=== PATIENT | male | born 1950 | race Caucasian/White ===

== ENCOUNTER 2018-11-09 18:54 | Inpatient (IN) | payer OTHER ==
[2018-11-09 19:27] LABS: #Basophils 0.1 thou/uL (0.0-0.2); #Eosinphils 0.4 thou/uL (0.0-0.7); #Lymphocytes 1.2 thou/uL (1.20-3.40); #Monocytes 0.8 thou/uL (0.11-0.59); #Neutrophils 7.8 thou/uL (1.40-6.50); %Basophils 0.7 % (0.0-1.0); %Eosinophils 4.1 % (0.0-10.0); %Lymphocytes 11.5 % (21.0-51.0); %Monocytes 7.4 % (0.0-10.0); %Neutrophils 76.3 % (42.0-75.0); Hemoglobin 10.7 g/dL (14.0-18.0); Mean Corpuscular HGB CONC 31.2 g/dL (32.0-36.0); Mean Corpuscular Hemoglobin 30.5 pg (27.0-31.0); Mean Platelet Volume 8.6 fL (7.4-10.4); Platelet Count 182 thou/uL (130-400); RBC Distribution Width 12.9 % (11.5-14.5); Red Blood Cell (RBC) Count 3.52 mill/uL (4.70-6.10); White Blood Cell (WBC) Count 10.2 thou/uL (4.8-10.8)
--- NOTE | 2018-11-09 19:35 | RAD ---
CHEST ONE VIEW: History: Chest pain FINDINGS: Heart size is enlarged. Mild pulmonary venous congestion. Mild blunting of both lateral costophrenic sulci. No pneumothorax. IMPRESSION: 1. Cardiomegaly and mild pulmonary venous congestion. 2. Likely small bilateral pleural effusions. POS: [facility]
[2018-11-09 19:43] LABS: ALT (SGPT) 27 U/L (8-55); AST (SGOT) 21 U/L (5-34); Albumin 3.3 g/dL (3.4-4.8); Alkaline Phosphatase 156 U/L (40-150); Anion Gap 14 mmol/L (10-20); BUN (Urea Nitrogen) 29 mg/dL (8.4-25.7); Bilirubin, Total 0.4 mg/dL (0.2-1.2); CK (CPK) 34 U/L (30-200); Calc. Creatinine Clearance 0 mL/min (70-130); Calcium 10.1 mg/dL (7.8-10.44); Carbon Dioxide 15 mmol/L (23-31); Chloride 114 mmol/L (98-107); Estimated GFR-MDRD 16; Globulin 2.7 g/dL (2.4-3.5); Glucose 91 mg/dL (80-115); Potassium 4.8 mmol/L (3.5-5.1); Sodium 138 mmol/L (136-145)
[2018-11-09 20:05] LABS: CKMB 1.8 ng/mL (0-6.6)
[2018-11-09 23:01] LABS: Troponin I 0.062 ng/mL (< 0.028)
[2018-11-09] MEDS ORDERED: Bisacodyl 10 MG SUPP PR PRN (23:38)
[2018-11-09] MEDS ORDERED: hydrALAZINE 20 MG/ML VIAL SLOW IVP PRN (23:38)
[2018-11-09] MEDS ORDERED: Acetaminophen 325 MG TAB PO PRN (23:38)
[2018-11-09] MEDS ORDERED: HYDROcodone/Acetaminophen 5/325 mg Tablet PO PRN (23:38)
[2018-11-09] MEDS ORDERED: Furosemide 100 MG/10 ML VIAL SLOW IVP SCH (23:38)
[2018-11-09] MEDS ORDERED: Ondansetron PF 4 MG/2 ML Vial IVP PRN (23:38)
[2018-11-10] MEDS: cloNIDine 0.1 MG TAB PO PRN ×2 (00:16→04:47)
[2018-11-10 00:29] VITALS: BMI 36.8
--- NOTE | 2018-11-10 01:17 | HP ---
PRIMARY CARE PHYSICIAN: None. CHIEF COMPLAINT: Chest pain. HISTORY OF PRESENT ILLNESS: The patient is a 67-year-old male with past medical history of CKD, likely end-stage, not on dialysis; hypertension; hyperlipidemia ; and depression, who [facility]. The patient reports that his chest pain has been going on for the past 2 days. It is substernal. The patient reports that his chest pain is not resolved. The patient reports that he has severe kidney failure and that they have talked about him to be on dialysis. The patient reports that he follows up with a concession stand attendant, but he is not able to tell the name of the concession stand attendant. Per [facility], the patient has been getting his medications. The patient takes metoprolol at nighttime. Review of chart indicated the patient did not have any workup in the EMR. PAST MEDICAL HISTORY: As mentioned in the HPI. PAST PSYCHIATRIC HISTORY: Bipolar. PAST SURGICAL HISTORY: None. SOCIAL HISTORY: The patient is a former smoker. Denies alcohol or drugs. FAMILY HISTORY: The patient reports mother having coronary artery disease. CURRENT MEDICATIONS: 1. Amlodipine. 2. Aspirin. 3. Atorvastatin. 4. Losartan. 5. Metoprolol. 6. Calcitriol. 7. Sevelamer. 8. Vitamin B12. 9. Loratadine. 10. Lamotrigine. 11. Sensipar. 12. Levemir. 13. Terazosin. 14. Lasix 120 mg b.i.d. ALLERGIES: NO KNOWN ALLERGIES TO DRUG. REVIEW OF SYSTEMS: A 10-point review of systems is negative, other than mentioned in the HPI. PHYSICAL EXAMINATION: VITAL SIGNS: Blood pressure 247/127, heart rate 70, respiratory rate 20, and O2 saturation 99% on room air. HEENT: Head, atraumatic. Ears, nose, and throat; no exudate or bleeding noted. NECK: No lymphadenopathy noted. CARDIOVASCULAR: Regular rate and rhythm. No murmurs, rubs, or gallops noted. RESPIRATORY: The patient noted to have rales. No wheezes noted. ABDOMEN: Soft and nontender. Bowel sounds are positive. EXTREMITIES: Bilateral lower extremity edema, 2+. NEUROLOGIC: The patient is alert. SKIN: No rashes noted. LABORATORY DATA: Sodium 138, potassium 4.8, chloride 114, carbon dioxide 15, BUN 29, creatinine 3.76, and glucose 91. Alkaline phosphatase 156. Troponin 0.062. White blood cell count 10.2, hemoglobin 10.7, hematocrit 34.5, and platelets 182. DIAGNOSTIC DATA: Chest x-ray, concerning for cardiomegaly with mild pulmonary vascular congestion, likely small bilateral pleural fluids. The patient's EKG reviewed, showed first-degree block and complete right bundle-branch block. ASSESSMENT: 1. Acute congestive heart failure. 2. Chronic kidney disease, likely stage 4 or 5. 3. Chest pain. 4. Hypertension, uncontrolled. 5. Hyperlipidemia. PLAN: The patient's chest pain resolved. We will admit for ACS rule out. Initial troponin does not seem to be positive. Cardiology consult placed. Echocardiogram ordered. We will trend troponin overnight. The patient will be on tele. It appears that the patient may have acute CHF, type unknown at this point. The patient takes Lasix 120 mg b.i.d., but reports a very little urine output. We will give Lasix 80 mg b.i.d. Also, we will place the patient on fluid restriction. Cardiology consult placed. BNP pending. Chronic kidney disease, stage 5 or stage 4. The patient's creatinine baseline unknown at this point. The patient does not seem to be responding very well to home Lasix 120 mg b.i.d. We will give Lasix 80 mg b.i.d. Nephrology consult placed for the morning. If the patient continues to have poor urine output and fluid overload, he may need dialysis. Hypertensive urgency. The patient's blood pressure in 240s/127. The patient was given labetalol in the ER. We will add hydralazine and clonidine p.r.n. Restart home medication as soon as they are verified. Will avoid labetalol as HR 60-70 Hyperlipidemia. Continue home medication. The patient is a full code. Medical power of document review attorney, the patient would like his step mom to be medical power of document review attorney. The patient does not have any children. DVT prophylaxis addressed. Job ID: [id number] [facility]
[2018-11-10 01:43] LABS: Troponin I 0.074 ng/mL (< 0.028)
[2018-11-10] MEDS: Nitroglycerin 2% Ointment 1 INCH/1 GM Packet TOP SCH ×3 (04:48→21:46)
[2018-11-10 05:44] LABS: Band 5 % (5-11); Hemoglobin 10.9 g/dL (14.0-18.0); Lymphocytes 5 % (21-51); MDiff Complete? YES; Mean Corpuscular HGB CONC 31.7 g/dL (32.0-36.0); Mean Corpuscular Hemoglobin 30.7 pg (27.0-31.0); Mean Corpuscular Volume 96.7 fL (78.0-98.0); Mean Platelet Volume 9.2 fL (7.4-10.4); Monocytes 6 % (0-10); Myelocyte 1 % (0-0); Neutrophil 83 % (42-75); Platelet Count 200 thou/uL (130-400); Platelet Morphology Comment Appears Adequate; RBC Distribution Width 12.8 % (11.5-14.5); Red Blood Cell (RBC) Count 3.56 mill/uL (4.70-6.10); White Blood Cell (WBC) Count 12.3 thou/uL (4.8-10.8)
[2018-11-10 06:00] LABS: Anion Gap 12 mmol/L (10-20); BUN (Urea Nitrogen) 31 mg/dL (8.4-25.7); Calc. Creatinine Clearance 29 mL/min (70-130); Calcium 10.6 mg/dL (7.8-10.44); Carbon Dioxide 22 mmol/L (23-31); Cardiac Risk 5.6 (Less than 4.5); Chloride 110 mmol/L (98-107); Cholesterol 151 mg/dl (< 200 Desired); Estimated GFR-MDRD 16; Glucose 103 mg/dL (80-115); HDL Cholesterol 27 mg/dL (>60 Neg Risk); LDL Cholesterol, Calculated 105 mg/dL; Magnesium 2.3 mg/dL (1.6-2.6); Potassium 4.3 mmol/L (3.5-5.1); Sodium 140 mmol/L (136-145); Triglycerides 97 mg/dL (Less than 150)
[2018-11-10] MEDS: Furosemide 100 MG/10 ML VIAL SLOW IVP SCH ×2 (06:36→13:53)
[2018-11-10] MEDS ORDERED: Non-Formulary Item 1 EACH (Aspirin 81 MG) PO SCH (09:00)
[2018-11-10] MEDS ORDERED: LAMOTRIGINE 200 MG PO SCH (09:00)
[2018-11-10] MEDS ORDERED: Losartan 25 MG TAB PO SCH (09:00)
[2018-11-10] MEDS ORDERED: Amlodipine 10 MG TAB PO SCH (09:00)
[2018-11-10] MEDS: Heparin 5,000 UNITS/ML VIAL SC SCH ×3 (09:31→21:45)
[2018-11-10] MEDS: Sevelamer Carbonate 800 MG TAB PO SCH ×3 (09:31→21:46)
[2018-11-10] MEDS: lamoTRIgine 100 MG TAB PO SCH (09:31)
[2018-11-10] MEDS: Atorvastatin Calcium 40 MG TAB PO SCH (09:32)
[2018-11-10] MEDS: Metoprolol Tartrate 25 MG TAB PO SCH ×2 (09:32→21:46)
[2018-11-10] MEDS: Calcitriol 0.25 MCG CAP PO SCH (09:32)
[2018-11-10] MEDS: Aspirin Chewable 81 MG TAB PO SCH (09:32)
[2018-11-10] MEDS: Cinacalcet HCl 30 MG TAB PO SCH (09:32)
[2018-11-10] MEDS: Aspirin 81 mg Enteric Coated Tablet PO SCH (09:33)
--- NOTE | 2018-11-10 10:14 | PDOC.PN ---
- Subjective Encounter Start Date: 11/10/18 Encounter Start Time: 07:40 -: old records requested/rev Patient seen and examined. No new complaints. No overnight events - Objective Resuscitation Status - Order Detail: 11/09/18 23:15 Resuscitation Status Routine Resuscitation Status: FULL: Full Resuscitation MAR Reviewed: Yes Vital Signs & Weight: Vital Signs (12 hours) Temp Pulse Resp BP BP BP Pulse Ox 11/10/18 08:00 97.6 F 60 24 H 186/81 H 95 11/10/18 06:30 66 162/82 H 11/10/18 04:47 199/91 H 11/10/18 04:17 99.0 F 66 24 H 199/91 H 94 L 11/10/18 02:45 81 184/92 H 11/10/18 01:46 68 200/94 H 11/10/18 01:06 199/100 H 11/10/18 00:16 203/99 H 11/10/18 00:11 97 11/09/18 23:34 98.0 F 73 19 203/99 H 95 Weight Weight 242 lb 1.6 oz I&O: 11/09/18 11/10/18 11/11/18 06:59 06:59 06:59 Intake Total 840 Output Total 2150 Balance -1310 Result Diagrams: 11/10/18 04:23 11/10/18 04:23 Radiology Reviewed by me: Yes EKG Reviewed by me: Yes Phys Exam - Physical Examination Constitutional: NAD HEENT: PERRLA, moist MMs, sclera anicteric Neck: no JVD, supple Respiratory: no wheezing, no rales, no rhonchi Cardiovascular: RRR, no significant murmur, no rub Gastrointestinal: soft, non-tender, no distention, positive bowel sounds obesity Musculoskeletal: edema present Neurological: non-focal, normal sensation Lymphatic: no nodes Psychiatric: normal affect, A&O x 3 Skin: no rash, normal turgor Dx/Plan (1) Acute on chronic diastolic ACC/AHA stage C congestive heart failure Code(s): I50.33 - ACUTE ON CHRONIC DIASTOLIC (CONGESTIVE) HEART FAILURE Status : Acute (2) Chest pain Code(s): R07.9 - CHEST PAIN, UNSPECIFIED Status: Acute (3) Elevated troponin Code(s): R74.8 - ABNORMAL LEVELS OF OTHER SERUM ENZYMES Status: Acute (4) Hypertensive urgency Code(s): I16.0 - HYPERTENSIVE URGENCY Status: Acute (5) Anemia of renal disease Code(s): N18.9 - CHRONIC KIDNEY DISEASE, UNSPECIFIED; D63.1 - ANEMIA IN CHRONIC KIDNEY DISEASE Status: Chronic (6) Anxiety and depression Code(s): F41.9 - ANXIETY DISORDER, UNSPECIFIED; F32.9 - MAJOR DEPRESSIVE DISORDER, SINGLE EPISODE, UNSPECIFIED Status: Chronic (7) CKD (chronic kidney disease) stage 4, GFR 15-29 ml/min Code(s): N18.4 - CHRONIC KIDNEY DISEASE, STAGE 4 (SEVERE) Status: Chronic (8) Diabetes type 2, controlled Code(s): E11.9 - TYPE 2 DIABETES MELLITUS WITHOUT COMPLICATIONS Status: Chronic (9) Dyslipidemia Code(s): E78.5 - HYPERLIPIDEMIA, UNSPECIFIED Status: Chronic (10) Hypertension Code(s): I10 - ESSENTIAL (PRIMARY) HYPERTENSION Status: Chronic (11) Obesity (BMI 30-39.9) Code(s): E66.9 - OBESITY, UNSPECIFIED Status: Chronic (12) Secondary hyperparathyroidism (of renal origin) Code(s): N25.81 - SECONDARY HYPERPARATHYROIDISM OF RENAL ORIGIN Status: Chronic - Plan cont current plan of care * medication reviewed as below * symptomatic treatment * cardiology and nephrology consulted * home medication reconciled. Review of Systems - Review of Systems ENT: negative: Ear Pain, Ear Discharge, Nose Pain, Nose Discharge, Nose Congestion, Mouth Pain, Mouth Swelling, Throat Pain, Throat Swelling, Other Respiratory: negative: Cough, Dry, Shortness of Breath, Hemoptysis, SOB with Excertion, Pleuritic Pain, Sputum, Wheezing Cardiovascular: negative: chest pain, palpitations, orthopnea, paroxysmal nocturnal dyspnea, edema, light headedness, other Gastrointestinal: negative: Nausea, Vomiting, Abdominal Pain, Diarrhea, Constipation, Melena, Hematochezia, Other Genitourinary: negative: Dysuria, Frequency, Incontinence, Hematuria, Retention , Other Musculoskeletal: negative: Neck Pain, Shoulder Pain, Arm Pain, Back Pain, Hand Pain, Leg Pain, Foot Pain, Other Skin: negative: Rash, Lesions, Cornelius, Bruising, Other - Medications/Allergies Allergies/Adverse Reactions: Allergies Allergy/AdvReac Type Severity Reaction Status Date / Time No Known Drug Allergies Allergy Unverified 11/09/18 23:41 Medications: Current Medications Acetaminophen (Tylenol) 650 mg PO Q4H PRN PRN Reason: Headache/Fever/Mild Pain (1-3) Hydrocodone Bitart/Acetaminophen ([place] 5/325) 1 tab PO Q4H PRN PRN Reason: Moderate Pain (4-6) Amlodipine Besylate (Norvasc) 10 mg PO DAILY [facility] Last Admin: 11/10/18 09:32 Dose: 10 mg Aspirin (Ecotrin) 81 mg PO DAILY [facility] Last Admin: 11/10/18 09:33 Dose: Not Given Aspirin (Aspirin Chewable) 81 mg PO DAILY [facility] Last Admin: 11/10/18 09:32 Dose: 81 mg Atorvastatin Calcium (Lipitor) 40 mg PO DAILY [facility] Last Admin: 11/10/18 09:32 Dose: 40 mg Bisacodyl (Dulcolax) 10 mg [place] DAILYPRN PRN PRN Reason: Constipation Calcitriol (Rocaltrol) 0.25 mcg PO DAILY [facility] Last Admin: 11/10/18 09:32 Dose: 0.25 mcg Cinacalcet (Sensipar) 30 mg PO DAILY [facility] Last Admin: 11/10/18 09:32 Dose: 30 mg Citalopram Hydrobromide (Celexa) 20 mg PO HS [facility] Clonidine (Catapres) 0.1 mg PO Q4H PRN PRN Reason: SBP Greater Than 170 Last Admin: 11/10/18 04:47 Dose: 0.1 mg Furosemide (Lasix) 80 mg SLOW IVP 0600,1400 [facility] Last Admin: 11/10/18 06:36 Dose: 80 mg Heparin Sodium (Porcine) (Heparin) 5,000 units SC TID [facility] Last Admin: 11/10/18 09:31 Dose: 5,000 units Hydralazine HCl (Apresoline) 10 mg SLOW IVP Q4H PRN PRN Reason: SBP Greater Than 170 Last Admin: 11/10/18 01:46 Dose: 10 mg Lamotrigine (Lamictal) 200 mg PO DAILY [facility] Last Admin: 11/10/18 09:31 Dose: 200 mg Losartan Potassium (Cozaar) 50 mg PO DAILY [facility] Last Admin: 11/10/18 09:32 Dose: 50 mg Metoprolol Tartrate (Lopressor) 25 mg PO BID [facility] Last Admin: 11/10/18 09:32 Dose: 25 mg Nitroglycerin (Nitro-Bid 2% Ointment) 0.5 inch TOP Q8HR [facility] Last Admin: 11/10/18 04:48 Dose: Not Given Ondansetron HCl (Zofran) 4 mg IVP Q6H PRN PRN Reason: Nausea/Vomiting Sevelamer Carbonate (Renvela) 800 mg PO TID [facility] Last Admin: 11/10/18 09:31 Dose: 800 mg Sodium Chloride (Flush - Normal Saline) 10 ml IVF Q12HR [facility] Last Admin: 11/10/18 09:31 Dose: 10 ml Sodium Chloride (Flush - Normal Saline) 10 ml IVF PRN PRN PRN Reason: Saline Flush Terazosin HCl (Hytrin) 20 mg PO HS [facility]
[2018-11-10 12:00] LABS: Bilirubin Negative (Negative); Blood, Urine Trace (Negative); Clarity CLEAR (Clear); Glucose, Urine (Dipstick) Negative (Negative); Leukocyte Negative (Negative); Nitrite Negative (Negative); Protein, Urine (Dipstick) 100 mg/dL (Neg-Trace); Specific Gravity, Urine 1.008 (1.002-1.036); Urobilinogen 0.2 mg/dL (0.2-1.0); pH, Urine 6.5 (5.0-9.0)
[2018-11-10 12:06] LABS: Bacteria/HPF None Seen HPF (None Seen); Hyaline Casts/LPF 0-3 HYALINE CAST LPF (0-3 Hyaline); RBC/HPF 0-3 HPF (0-3); Squamous Epithelial None Seen HPF (0-3); WBC/HPF None Seen HPF (0-3)
[2018-11-10 12:38] LABS: Creatinine, Urine Less than 20.00 mg/dL (63-166); Protein, Urine Random Quant 84 mg/dL (1-14)
--- NOTE | 2018-11-10 13:02 | CON ---
DATE OF CONSULTATION: 11/10/2018 REASON FOR CONSULTATION: Chronic kidney disease stage 4 with possible ESTELLA. CHIEF COMPLAINT: Chest pain and shortness of breath. HISTORY OF PRESENT ILLNESS: A 67-year-old male with past medical history significant for chronic kidney disease, stage 4, diagnosed since 1999, hypertension, hyperlipidemia, who was admitted to the hospital by the hospitalist service for evaluation and treatment of chest pain and shortness of breath. Nephrology consult was requested for management of chronic kidney disease with possible reversible component. The patient reported that he was told he had kidney disease in the year 1999 and has been followed up intermittently at [facility]. During the patient's last hospitalization at [facility] in Aug 2018, the patient was told that the kidney function has deteriorated further and dialysis was considered and they also planned on establishing access on him, but that has not happened yet. The patient reported that he was swollen and was treated with diuretics with improvement in swelling and shortness of breath and was subsequently discharged. Since then, he reported that the swelling progressively has gotten worse, culminating in acute onset of chest pain on the day of presentation associated with exertion on dyspnea. The patient continues to complain of difficulty breathing and shortness of breath. The chest pain has resolved. The patient also was noted to have uncontrolled high blood pressure with BP of 203/99 on presentation. Baseline creatinine is unknown at this time. PAST MEDICAL HISTORY: 1. Chronic kidney disease, stage 4. 2. Hypertension. 3. Hyperlipidemia. 4. Depression and anxiety. 5. Hypothyroidism. 6. Bipolar. Levemir is listed in patient home medications but he denied DM history PAST SURGICAL HISTORY: None. SOCIAL HISTORY: The patient is currently [facility] the [facility]. He admitted to smoking two packs per day and has not smoked since been in penitentiary. He denied alcohol or recreational drug use. FAMILY HISTORY: Significant for coronary artery disease in both parents. ALLERGIES: NO KNOWN DRUG ALLERGIES REPORTED. HOME MEDICATIONS: 1. Amlodipine. 2. Aspirin. 3. Atorvastatin. 4. Losartan. 5. Metoprolol. 6. Calcitriol. 7. Sevelamer. 8. Vitamin B12. 9. Loratadine. 10. Lamotrigine. 11. Sensipar. 12. Levemir. 13. Terazosin. 14. Lasix. Of note, the patient denied history of diabetes. REVIEW OF SYSTEMS: 12-point review of system was performed, and it was negative other than the pertinent positives and negatives included in the history of presenting illness. PHYSICAL EXAMINATION: VITAL SIGNS: Current vitals at 8:00 a.m. November 10, 2018; BP 186/81, pulse 60 , respiratory rate 24, SpO2 of 94 on room air, temperature 97.6. Since admission, systolic blood pressure has ranged from 155 to 203. GENERAL: Obese, elderly male, in no obvious distress. Afebrile, anicteric, acyanotic. HEENT: Normocephalic and atraumatic. Pupils are equal and reacting to light. Oral mucosa is moist. NECK: No obvious JVD or lymphadenopathy appreciated. CARDIOVASCULAR: Regular rhythm and rate with normal heart sounds one and two. No murmur was appreciated. RESPIRATORY: Fair air entry bilateral with decreased air entry both bases. Few crackles bibasilarly appreciated. GI: Abdomen is obese, soft, and nontender with normal bowel sounds. EXTREMITIES: Grossly normal looking other than bilateral leg edema 2+. No erythema appreciated. SKIN: No obvious rash was appreciated, though the skin seems very dry. NEUROLOGIC: Conscious and alert, oriented x3 with appropriate mental status. Cranial nerves 2 through 12 are intact. The patient moves all extremities. LABORATORY DATA: BMP today showed sodium 140, potassium 4.3, chloride 110, CO2 of 22, BUN 31, creatinine 3.85, glucose 103, calcium 10.6, magnesium 2.3. Creat on admission was 3.76 Estimated GFR is 16. BNP is 2628. Troponin is 0.074. CBC showed WBC count of 12.3, hemoglobin of 10.9, MCV of 96.7, platelet of 200. DIAGNOSTIC DATA: EKG done on presentation showed first-degree AV block with complete right bundle-branch block. No obvious ischemic changes noted. Chest x-ray obtained on presentation showed cardiomegaly and mild bilateral pulmonary congestion with likely small bilateral pleural effusion. ASSESSMENT AND PLAN/RECOMMENDATION: 1. Chronic kidney disease, stage 4 with possible ESTELLA. The patient reported a diagnosis of chronic kidney disease since 1999 that is 19 years ago. He was also told that his kidney function had worsened during last admission at [facility] and dialysis was considered. Baseline creatinine and renal function are unknown at this time. The patient has been making adequate urine with diuretic. Acid-base and electrolytes are acceptable at this time. The patient is also on Sensipar and sevelamer. We will get medical records from [facility] to assess the patient's baseline renal function. There is no need for dialytic treatment at this time. However, that could change should cardiology decide on proceeding with angiogram on him. 2. Uncontrolled hypertension: This most likely is related to the chronic kidney disease and volume overload. BP remains inadequately controlled. Improvement of volume status will improve BP control. We recommend switching amlodipine with nifedipine so that medication could be optimized to get adequate BP control. We will also increase losartan dose 3. Volume status: The patient is clearly volume overloaded. He is diuresing well with current diuretic regimen. He was negative 1300 in the last 24 hours. We will continue current diuretic regimen, but we will add metolazone if diuresis becomes inadequate. 4. Acid-base balance: The patient was noted to have a CO2 of 15 with a chloride of 115. With diuretics, CO2 is up to 22 this morning. We will monitor acid-base balance. The patient is not on alkali treatment. This should be considered when volume status has improved. 5. Electrolytes: Potassium is within normal limits. We do not have phosphorus at this time, but the patient is on binder. 6. Bone and mineral disease: Total calcium is mildly elevated at 10.6. This most likely due to diuretic therapy. The patient is also on calcitriol. We will monitor closely. Many thanks for involving us in the care of this patient. I will follow along with you. Job ID: [id number] MTDD
--- NOTE | 2018-11-10 20:45 | CON ---
DATE OF CONSULTATION: HISTORY OF PRESENT ILLNESS: Sebastian Coffman is a 67-year-old white male, inmate at the [place] [facility]. He has been evaluated at [facility] in the past. He has been told since 1999 that he had kidney disease. He was last evaluated at [facility] in August. He had some cardiac evaluation, although, he is not certain exactly what was done. However, he was told that his heart was "all right." He now is admitted with approximately 2 hours of continuous chest pressure. He was short of breath with this. He denies any pleuritic component to the pain. If he would lie supine in bed, the pain would seem to be worse, and his breathing would also worsen. He states by the time he arrived in the emergency room, his pain was resolving. PAST MEDICAL HISTORY: Hypertension and hypercholesterolemia. No history of diabetes. MEDICATIONS: 1. Amlodipine 10 mg daily. 2. Aspirin 81 daily. 3. Lipitor 40 mg daily. 4. Calcitriol 0.25 mcg daily. 5. Sensipar 30 mg daily. 6. Celexa 20 mg at bedtime. 7. Vitamin B12 of 1000 mcg daily. 8. Furosemide 120 mg b.i.d. 9. Lamictal 200 mg daily. 10. Claritin 10 mg daily. 11. Losartan 50 mg daily. 12. Terazosin 20 mg at bedtime. 13. Sevelamer 800 mg t.i.d. ALLERGIES: NONE. SOCIAL HISTORY: He smoked 2 packs per day, but states he stopped 20 years ago. Does not drink. FAMILY HISTORY: Both mother and father had myocardial infarctions. REVIEW OF SYSTEMS: A 12-point review of systems is otherwise unremarkable. PHYSICAL EXAMINATION: VITAL SIGNS: Blood pressure 163/77 and pulse of 54. HEENT: PERRL. NECK: Supple. CHEST: Clear. CARDIAC: S1 and S2 normal without any S3, S4, or murmurs. ABDOMEN: Mildly obese. Normal bowel sounds. No tenderness. EXTREMITIES: Revealed 1+ pretibial edema. NEUROLOGIC: Grossly intact. SKIN: Warm and dry. LABORATORY DATA: EKG revealed normal sinus rhythm with first degree AV block and right bundle-branch block. Chest x-ray revealed cardiomegaly with mild pleural effusions and pulmonary venous congestion. Hemoglobin 10.9, hematocrit 34.4, white count 12,300, platelets 200,000. Sodium 140, potassium 4.3, chloride 110, carbon dioxide 22, BUN 31, creatinine 3.85. BNP 2688.7. Troponin I 0.074. Cholesterol 151, triglycerides 97, HDL 27, and LDL 105. TSH is normal. IMPRESSION: 1. Probable diastolic heart failure secondary to volume overload and poorly-controlled hypertension. 2. Demand ischemia. 3. Chronic kidney disease, stage 4. 4. Hypertension. 5. Hypercholesterolemia. 6. Former smoker. 7. Positive family history. PLAN: Echocardiogram will be performed to assess left ventricular function. He will undergo Cardiolite testing. Certainly, if he would undergo cardiac catheterization, he probably would end up on dialysis. Job ID: [id number] [facility]
[2018-11-10] MEDS ORDERED: TERAZOSIN HCL PO SCH (21:00)
[2018-11-10] MEDS: Losartan 25 MG TAB PO SCH (21:45)
[2018-11-10] MEDS: Citalopram 20 MG TAB PO SCH (21:45)
[2018-11-10] MEDS: Terazosin HCl 5 MG CAP PO SCH (21:46)
[2018-11-11] MEDS: Nitroglycerin 2% Ointment 1 INCH/1 GM Packet TOP SCH ×3 (05:57→20:04)
[2018-11-11] MEDS: Furosemide 100 MG/10 ML VIAL SLOW IVP SCH ×2 (06:06→15:22)
[2018-11-11 06:32] LABS: Albumin 3.2 g/dL (3.4-4.8); Anion Gap 11 mmol/L (10-20); BUN (Urea Nitrogen) 42 mg/dL (8.4-25.7); BUN/Creatinine Ratio 9.79; Calc. Creatinine Clearance 25 mL/min (70-130); Carbon Dioxide 21 mmol/L (23-31); Chloride 111 mmol/L (98-107); Estimated GFR-MDRD 14; Glucose 104 mg/dL (80-115); Phosphorus 4.4 mg/dL (2.3-4.7); Potassium 4.3 mmol/L (3.5-5.1); Sodium 139 mmol/L (136-145)
[2018-11-11 06:36] LABS: Troponin I 0.056 ng/mL (< 0.028)
[2018-11-11] MEDS ORDERED: Regadenoson 0.4 MG/5 ML SYRINGE ONE (10:27)
--- NOTE | 2018-11-11 11:48 | PDOC.PN ---
- Subjective Encounter Start Date: 11/11/18 Encounter Start Time: 07:40 Patient seen and examined. No new complaints. No overnight events - Objective Resuscitation Status - Order Detail: 11/09/18 23:15 Resuscitation Status Routine Resuscitation Status: FULL: Full Resuscitation MAR Reviewed: Yes Vital Signs & Weight: Vital Signs (12 hours) Temp Pulse Resp BP Pulse Ox 11/11/18 04:21 97.8 F 53 L 14 110/65 94 L Weight Weight 234 lb I&O: 11/10/18 11/11/18 11/12/18 06:59 06:59 06:59 Intake Total 840 550 Output Total 2150 2175 Balance -1310 -1625 Result Diagrams: 11/10/18 04:23 11/11/18 05:52 Radiology Reviewed by me: Yes EKG Reviewed by me: Yes Phys Exam - Physical Examination Constitutional: NAD HEENT: PERRLA, moist MMs, sclera anicteric Neck: no JVD, supple Respiratory: no wheezing, no rales, no rhonchi Cardiovascular: RRR, no significant murmur, no rub Gastrointestinal: soft, non-tender, no distention, positive bowel sounds Musculoskeletal: pulses present, edema present Neurological: non-focal, normal sensation Lymphatic: no nodes Psychiatric: normal affect, A&O x 3 Skin: no rash, normal turgor Dx/Plan (1) Acute on chronic diastolic ACC/AHA stage C congestive heart failure Code(s): I50.33 - ACUTE ON CHRONIC DIASTOLIC (CONGESTIVE) HEART FAILURE Status : Acute (2) Chest pain Code(s): R07.9 - CHEST PAIN, UNSPECIFIED Status: Acute (3) Elevated troponin Code(s): R74.8 - ABNORMAL LEVELS OF OTHER SERUM ENZYMES Status: Acute (4) Hypertensive urgency Code(s): I16.0 - HYPERTENSIVE URGENCY Status: Acute (5) Anemia of renal disease Code(s): N18.9 - CHRONIC KIDNEY DISEASE, UNSPECIFIED; D63.1 - ANEMIA IN CHRONIC KIDNEY DISEASE Status: Chronic (6) Anxiety and depression Code(s): F41.9 - ANXIETY DISORDER, UNSPECIFIED; F32.9 - MAJOR DEPRESSIVE DISORDER, SINGLE EPISODE, UNSPECIFIED Status: Chronic (7) CKD (chronic kidney disease) stage 4, GFR 15-29 ml/min Code(s): N18.4 - CHRONIC KIDNEY DISEASE, STAGE 4 (SEVERE) Status: Chronic (8) Diabetes type 2, controlled Code(s): E11.9 - TYPE 2 DIABETES MELLITUS WITHOUT COMPLICATIONS Status: Chronic (9) Dyslipidemia Code(s): E78.5 - HYPERLIPIDEMIA, UNSPECIFIED Status: Chronic (10) Hypertension Code(s): I10 - ESSENTIAL (PRIMARY) HYPERTENSION Status: Chronic (11) Obesity (BMI 30-39.9) Code(s): E66.9 - OBESITY, UNSPECIFIED Status: Chronic (12) Secondary hyperparathyroidism (of renal origin) Code(s): N25.81 - SECONDARY HYPERPARATHYROIDISM OF RENAL ORIGIN Status: Chronic - Plan cont current plan of care * today stress test * continue lasix * continue procardia xl * cardiology and nephrology recommendation noted * medication reviewed as below * symptomatic treatment. Review of Systems - Review of Systems ENT: negative: Ear Pain, Ear Discharge, Nose Pain, Nose Discharge, Nose Congestion, Mouth Pain, Mouth Swelling, Throat Pain, Throat Swelling, Other Respiratory: negative: Cough, Dry, Shortness of Breath, Hemoptysis, SOB with Excertion, Pleuritic Pain, Sputum, Wheezing Cardiovascular: negative: chest pain, palpitations, orthopnea, paroxysmal nocturnal dyspnea, edema, light headedness, other Gastrointestinal: negative: Nausea, Vomiting, Abdominal Pain, Diarrhea, Constipation, Melena, Hematochezia, Other Genitourinary: negative: Dysuria, Frequency, Incontinence, Hematuria, Retention , Other Musculoskeletal: negative: Neck Pain, Shoulder Pain, Arm Pain, Back Pain, Hand Pain, Leg Pain, Foot Pain, Other - Medications/Allergies Allergies/Adverse Reactions: Allergies Allergy/AdvReac Type Severity Reaction Status Date / Time No Known Drug Allergies Allergy Verified 11/11/18 05:56 Medications: Current Medications Acetaminophen (Tylenol) 650 mg PO Q4H PRN PRN Reason: Headache/Fever/Mild Pain (1-3) Last Admin: 11/10/18 21:47 Dose: 650 mg Hydrocodone Bitart/Acetaminophen ([place] 5/325) 1 tab PO Q4H PRN PRN Reason: Moderate Pain (4-6) Aspirin (Ecotrin) 81 mg PO DAILY [facility] Last Admin: 11/10/18 09:33 Dose: Not Given Aspirin (Aspirin Chewable) 81 mg PO DAILY [facility] Last Admin: 11/10/18 09:32 Dose: 81 mg Atorvastatin Calcium (Lipitor) 40 mg PO DAILY [facility] Last Admin: 11/10/18 09:32 Dose: 40 mg Bisacodyl (Dulcolax) 10 mg MS DAILYPRN PRN PRN Reason: Constipation Calcitriol (Rocaltrol) 0.25 mcg PO DAILY [facility] Last Admin: 11/10/18 09:32 Dose: 0.25 mcg Cinacalcet (Sensipar) 30 mg PO DAILY [facility] Last Admin: 11/10/18 09:32 Dose: 30 mg Citalopram Hydrobromide (Celexa) 20 mg PO HS [facility] Last Admin: 11/10/18 21:45 Dose: 20 mg Clonidine (Catapres) 0.1 mg PO Q4H PRN PRN Reason: SBP Greater Than 170 Last Admin: 11/10/18 04:47 Dose: 0.1 mg Furosemide (Lasix) 80 mg SLOW IVP 0600,1400 [facility] Last Admin: 11/11/18 06:06 Dose: 80 mg Heparin Sodium (Porcine) (Heparin) 5,000 units SC TID [facility] Last Admin: 11/10/18 21:45 Dose: 5,000 units Hydralazine HCl (Apresoline) 10 mg SLOW IVP Q4H PRN PRN Reason: SBP Greater Than 170 Last Admin: 11/10/18 01:46 Dose: 10 mg Lamotrigine (Lamictal) 200 mg PO DAILY [facility] Last Admin: 11/10/18 09:31 Dose: 200 mg Losartan Potassium (Cozaar) 50 mg PO BID [facility] Last Admin: 11/10/18 21:45 Dose: 50 mg Metoprolol Tartrate (Lopressor) 25 mg PO BID [facility] Last Admin: 11/10/18 21:46 Dose: 25 mg Nifedipine (Procardia Xl) 30 mg PO DAILY [facility] Nitroglycerin (Nitro-Bid 2% Ointment) 0.5 inch TOP Q8HR [facility] Last Admin: 11/11/18 05:57 Dose: Not Given Ondansetron HCl (Zofran) 4 mg IVP Q6H PRN PRN Reason: Nausea/Vomiting Sevelamer Carbonate (Renvela) 800 mg PO TID [facility] Last Admin: 11/10/18 21:46 Dose: 800 mg Sodium Chloride (Flush - Normal Saline) 10 ml IVF Q12HR [facility] Last Admin: 11/10/18 21:46 Dose: 10 ml Sodium Chloride (Flush - Normal Saline) 10 ml IVF PRN PRN PRN Reason: Saline Flush Terazosin HCl (Hytrin) 20 mg PO HS [facility] Last Admin: 11/10/18 21:46 Dose: 20 mg
[2018-11-11] MEDS: Heparin 5,000 UNITS/ML VIAL SC SCH ×3 (12:04→20:02)
--- NOTE | 2018-11-11 12:04 | NM ---
RADIONUCLIDE STRESS AND REST MYOCARDIAL PERFUSION SCAN WITH CT ATTENUATION CORRECTION AND SPECT IMAGI NG: LEFT VENTRICULAR WALL MOTION EVALUATION AND EJECTION FRACTION: HISTORY: Chest pain. FINDINGS: Heterogeneous uptake of radiotracer throughout the left ventricular myocardium. On the stress images , there is a moderate-sized area of mildly to moderately diminished radiotracer uptake involving the inferolateral wall, where minimal loss of uptake is apparent on the rest images. Mild to moderate re versibility. No other areas of perfusion defect. QGS analysis of gated SPECT images shows no focal wall motion abnormalities. Left ventricular ejecti on fraction is calculated at 61%. IMPRESSION: Probably abnormal myocardial perfusion scan, showing an area of mild to moderate reversibility at the lateral wall. Clinical correlation regarding other signs and symptoms of circumflex ischemia is req uired. POS: KIRSTY
[2018-11-11] MEDS: Aspirin 81 mg Enteric Coated Tablet PO SCH (12:06)
[2018-11-11] MEDS: Losartan 25 MG TAB PO SCH ×2 (12:06→20:03)
[2018-11-11] MEDS: Metoprolol Tartrate 25 MG TAB PO SCH ×2 (12:07→20:02)
[2018-11-11] MEDS: Aspirin Chewable 81 MG TAB PO SCH (12:07)
[2018-11-11] MEDS: Atorvastatin Calcium 40 MG TAB PO SCH (12:07)
[2018-11-11] MEDS: Sevelamer Carbonate 800 MG TAB PO SCH ×3 (12:07→20:03)
[2018-11-11] MEDS: NIFEdipine XL 30 MG TAB PO SCH (12:07)
[2018-11-11] MEDS: lamoTRIgine 100 MG TAB PO SCH (12:08)
[2018-11-11] MEDS: Cinacalcet HCl 30 MG TAB PO SCH (12:08)
[2018-11-11] MEDS: Calcitriol 0.25 MCG CAP PO SCH (12:08)
--- NOTE | 2018-11-11 14:01 | PRG ---
DATE OF SERVICE: 11/11/2018 SUBJECTIVE: A 67-year-old long term inmate with CKD, stage 4/5; hypertension; and chronic CHF, who was admitted due to acute onset of chest pain as well as shortness of breath and was found to have wjwvh-ee-zzdvuid congestive heart failure. Nephrology consult was requested due to CKD to rule out possible reversible component. The patient reports feeling better. Shortness of breath and leg swelling have subsided. Review of medical record from [facility] showed that the patient had creatinine of 4.29 on September 23, 2018, as well as creatinine of 4.12 on October 28, 2018. Also, PTH intact was noted to be 1107 on September 23, 2018, and 1118.9 on October 28, 2018. OBJECTIVE: VITAL SIGNS: BP 130/67, pulse 53, temperature 97.8, SpO2 of 94 on room air, respiratory rate 14. GENERAL: Elderly male, in no obvious distress. Afebrile, anicteric, acyanotic. HEENT: Normocephalic and atraumatic. Pupils are equal and reacting to light. NECK: No JVD appreciated. RESPIRATORY: Good air entry bilaterally with few bibasilar crackles, especially posteriorly. No use of accessory muscles. CARDIOVASCULAR: Regular rhythm and rate with normal heart sounds 1 and 2. GI: Abdomen is obese, soft, nontender, and nondistended with normal bowel sounds. EXTREMITIES: Trace bilateral leg edema. No erythema or cyanosis. NEUROLOGIC: Conscious and alert, oriented x3 with appropriate mental status. DIAGNOSTIC DATA: Renal function panel today showed sodium 136, potassium 4.3, chloride 111, CO2 of 21, BUN 42, creatinine 4.29, glucose 104, calcium 10, phosphorus 4.4, albumin 2.2. Echocardiogram showed preserved ejection fraction with EF of 55% to 60%. Mzdo-dk-etjclfwd tricuspid regurgitation was noted as well as moderate mitral regurgitation. There was, however, no pericardial effusion. Nuclear stress test showed probably abnormal myocardial perfusion scan showing an area of zyxh-zp-sqqqjhfi reversible ischemia at the lateral wall. ASSESSMENT AND PLAN: 1. Chronic kidney disease, stage 4/5: The patient is nearing dialysis. Creatinine seems to be stable since last year. Review of medical records from [facility] showed creatinine ranging from 4 to 4.2 in the last year. The patient continues to make adequate urine especially with diuretics and metabolic profile is acceptable including electrolytes and phosphorus seems appropriate at this time. There is no immediate need for dialysis at this time; however, should Cardiology decide to proceed with cardiac catheterization, the patient most likely will end up requiring dialysis at that point due to Contrast induced nephropathy. 2. Volume status: Improving with diuresis. The patient is closer to euvolemia. We can transition to oral diuretics at this time. 3. Acid-base balance: We will start the patient on alkali treatment with sodium bicarbonate. 4. Hypertension: Control is better. We will continue current medications; nifedipine, losartan, and diuretics as well as metoprolol. 5. Tqp-DC-inpjctech myocardial infarction: Stress test seemed to be abnormal. We would defer to Cardiology. However, if invasive procedure is planned, we will also plan to get a temporary access for initiation of hemodialysis. The patient seems to follow up at [facility], and we will have his dialysis through the long term as he is a long term inmate. 6. Odoor-kx-emkvhuz congestive heart failure with preserved systolic function: We would defer to primary team and Cardiology. We will continue current medications including RAAS lauren and diuretics. Job ID: [id number] MTDD
[2018-11-11] MEDS: Terazosin HCl 5 MG CAP PO SCH (20:02)
[2018-11-11] MEDS: Citalopram 20 MG TAB PO SCH (20:03)
[2018-11-12] MEDS: Nitroglycerin 2% Ointment 1 INCH/1 GM Packet TOP SCH (05:19)
[2018-11-12] MEDS: Furosemide 100 MG/10 ML VIAL SLOW IVP SCH (05:44)
[2018-11-12 06:32] LABS: Albumin 3.2 g/dL (3.4-4.8); Anion Gap 11 mmol/L (10-20); BUN (Urea Nitrogen) 47 mg/dL (8.4-25.7); BUN/Creatinine Ratio 10.56; Calc. Creatinine Clearance 24 mL/min (70-130); Calcium 9.7 mg/dL (7.8-10.44); Carbon Dioxide 24 mmol/L (23-31); Chloride 109 mmol/L (98-107); Estimated GFR-MDRD 13; Glucose 104 mg/dL (80-115); Phosphorus 4.4 mg/dL (2.3-4.7); Potassium 4.1 mmol/L (3.5-5.1); Sodium 140 mmol/L (136-145)
[2018-11-12] MEDS ORDERED: Communication Order-Pharmacy FS SCH (09:00)
[2018-11-12] MEDS: Calcitriol 0.25 MCG CAP PO SCH (10:00)
[2018-11-12] MEDS: Heparin 5,000 UNITS/ML VIAL SC SCH ×2 (10:00→14:45)
[2018-11-12] MEDS: lamoTRIgine 100 MG TAB PO SCH (10:05)
[2018-11-12] MEDS: Losartan 25 MG TAB PO SCH (10:07)
[2018-11-12] MEDS: Cinacalcet HCl 30 MG TAB PO SCH (10:08)
[2018-11-12] MEDS: Aspirin 81 mg Enteric Coated Tablet PO SCH (10:08)
[2018-11-12] MEDS: Aspirin Chewable 81 MG TAB PO SCH (10:08)
[2018-11-12] MEDS: Metoprolol Tartrate 25 MG TAB PO SCH (10:09)
[2018-11-12] MEDS: Sevelamer Carbonate 800 MG TAB PO SCH ×2 (10:09→14:45)
[2018-11-12] MEDS: NIFEdipine XL 30 MG TAB PO SCH (10:09)
--- NOTE | 2018-11-12 11:29 | PRG ---
DATE OF SERVICE: 11/12/2018 SUBJECTIVE: A 67-year-old long-term inmate with CKD, stage 4/5; hypertension; and chronic CHF, admitted with acute onset of shortness of breath and chest pain associated with worsening bilateral leg swelling. The patient was found to have reversible ischemia on stress test and cardiac cath is planned by Cardiology. However, the patient intends to contact his family before he can proceed. Otherwise, he reports feeling better. Denies shortness of breath or chest pain. Leg swelling also has subsided. OBJECTIVE: VITAL SIGNS: Blood pressure 111/62, respiratory rate 18, SpO2 of 92 on room air, temperature 98, and pulse 66. GENERAL: Elderly male, in no obvious distress. Afebrile, anicteric, acyanotic. HEENT: Normocephalic, atraumatic. Pupils are equal and reacting to light. RESPIRATORY: Good air entry bilaterally with no obvious crackle or rhonchi or use of accessory muscles. CARDIOVASCULAR: Regular rhythm and rate with normal heart sounds 1 and 2. GASTROINTESTINAL: Abdomen is obese, soft, nontender, and nondistended with normal bowel sounds. EXTREMITIES: Grossly normal looking and atraumatic. No edema, erythema, or cyanosis. NEUROLOGIC: Conscious and alert, oriented x3 with appropriate mental status. DIAGNOSTIC DATA: Renal function panel showed sodium 140, potassium 4.1, chloride 109, CO2 of 24, BUN 47, creatinine 4.47, glucose 104, calcium 9.7, phosphorus 4.4, and albumin 3.2. ASSESSMENT AND PLAN: 1. Chronic kidney disease, stage 4/5: Acute increase in creatinine is due to diuretic therapy. Renal function has been stable in the last 6 months to 1 year. Metabolic profile as well as electrolytes have reportedly been acceptable. Given planned cardiac catheterization, the patient with advanced chronic kidney disease and increased risk for contrast-induced nephropathy with end up in maintenance dialysis and this was discussed with patient who verbalized understanding and desire to proceed In preparation for the planned cardiac catheterization, we will hold diuretics as well as losartan. We will avoid any other nephrotoxic agent. Will start acetylcysteine tomorrow morning. The patient cannot get IV fluid due to resolving congestive heart failure. We will likely get temporary access before cardiac catheterization and will do post cardiac cath hemodialysis. Surgery consult has been requested for temporarily access placement. 2. Volume status: Improved. Seems clinically euvolemic. We will hold diuretic at this time. 3. Acid-base balance. Improved. We will continue sodium bicarbonate. 4. Hypertension. Control is acceptable. Systolic blood pressure this morning is 111. We will continue nifedipine and metoprolol. We may have to increase nifedipine due to discontinuation of losartan and diuretics in preparation for contrast study. 5. Non-ST elevation myocardial infarction: The patient had positive stress test. Cardiology is following and cardiac cath is planned on November 14. 6. Acute on chronic congestive heart failure with preserved systolic function. Clinically improved. We will monitor I and O. Job ID: [id number] MTDD
[2018-11-12 13:45] VITALS: BP 132/72; TEMP 97.9
[2018-11-12] MEDS ORDERED: Sodium Bicarbonate Tab 325 MG TAB PO SCH (21:00)
[2018-11-12] MEDS ORDERED: Atorvastatin Calcium 40 MG TAB PO SCH (21:00)
--- NOTE | 2018-11-13 04:38 | DIS ---
DATE OF ADMISSION: 11/09/2018 DATE OF DISCHARGE: 11/12/2018 DISCHARGE DISPOSITION: Leaving AMA back to assisted. DISCHARGE DIAGNOSES: 1. Acute on chronic diastolic congestive heart failure, stage C. 2. Chest pain, likely acute non-ST elevation myocardial infarction. 3. Hypertensive urgency. 4. Anemia of chronic kidney disease. 5. Chronic kidney disease, stage 4. 6. Anxiety and depression. 7. Diabetes mellitus. 8. Dyslipidemia. 9. Hypertension. 10. Secondary hyperparathyroidism of renal origin. DISCHARGE MEDICATIONS: Resume home medications. No new prescriptions were given as the patient is leaving [place]. Please see admission history and physical for complete list of home medications. He is on the followin. Terazosin 20 mg daily. 2. Sevelamer 800 t.i.d. 3. Sensipar 30 daily. 4. Lamictal 200 mg daily. 5. Lopressor 25 mg p.o. b.i.d. 6. Cozaar 50 mg daily. 7. Loratadine 10 mg daily. 8. Lasix 120 mg p.o. b.i.d. 9. Celexa 20 mg daily. 10. Calcitriol 0.25 mcg daily. 11. Lipitor 40 mg daily. 12. Aspirin 81 mg daily. 13. Norvasc 10 mg daily. IN-HOUSE CONSULTATION: 1. Cardiology, Dr. Esteves. 2. Nephrology, Dr. Daly. PROCEDURES DONE IN THE HOSPITAL: 1. Transthoracic echocardiogram which shows EF of 55% to 60%, moderate mitral regurgitation, ugwg-ey-fcrozala tricuspid and mild pulmonic regurgitation. 2. Nuclear medicine stress test which is abnormal with concerns for area of ixku-nl-qllaplmj reversibility at the lateral wall. Ejection fraction of 61%. HISTORY OF PRESENTING ILLNESS: Mr. Coffman is a 67-year-old male, who is currently an inmate with history of coronary artery disease, chronic kidney disease, not on dialysis yet as well as hypertension, dyslipidemia, who presented from the assisted for complaints of chest pain. He was found to have a troponin of 0.062 upon presentation, as well as acute congestive heart failure on the chest x-ray. He was admitted for further evaluation and Cardiology was consulted and echo was ordered. Please see admission H and P for details. HOSPITAL COURSE: Serial cardiac enzymes were done and they were in the indeterminate range. Dr. Esteves saw the patient and he underwent nuclear medicine stress test, as well as echocardiogram. His BNP was found to be elevated over 2600. Nephrology was also consulted. His creatinine was 3.76 with baseline unknown. It was recommended that he underwent a cardiac catheterization, but for that, he would need to be started on dialysis because his kidneys would further fail with procedure needing contrast. His stress test was somewhat abnormal. He was continued on appropriate medication and Dr. Daly from Nephrology saw him and diuresed him. The patient went back and forth with his decision with regard to moving forward with catheterization and dialysis and even though initially he agreed to me earlier this morning, later he changed his mind and did not want to get anything done. Because of the high risk of sudden cardiac for this patient, Palliative Care Team was consulted and he agreed to have a DNR order in place. Out of hospital DNR was filled and signed by myself as well. I did talk to this patient again as well as jockey room custodian and exceptional student education teacher, but the patient was very adamant that he would rather go back to assisted to talk to his family and then make up his mind. Unfortunately, I cannot arrange any outpatient services for this patient as he has to go to [facility] because of his inmate status. I have updated the patient with regard to this and he agrees to follow up with the doctor in the jail. At this time, he is leaving A and has signed the AMA form. He was seen and examined prior to discharge. He is hemodynamically stable with vital signs, temperature 97.9, heart rate 59, blood pressure of 132/72. No acute distress. Denies any chest pain or shortness of breath. Chest clear to auscultation bilaterally. Rate and rhythm are regular. LABORATORY DATA: Lipid panel is within normal limits. TSH is normal. Repeat BNP is 2628. Most recent troponin is 0.056. Creatinine 4.45 with an estimated GFR of 13. TIME SPENT: Total time spent in the discharge, 40 minutes. Job ID: [id number]
== END 2018-11-12 16:24 | disposition left against medical advice (07) | DRG 280 ==
LOC: ERS 18:54 → OBSVTOIN 23:29 → 2SW 23:29 → 2NO 11-10 20:47
PROVIDERS: ADMIT Family Medicine; ATTEND Family Medicine
DX: I13.0 Hypertensive heart and chronic kidney disease with heart failure and stage 1 through stage 4 chronic kidney disease, or unspecified chronic kidney disease (principal); I21.4 Non-ST elevation (NSTEMI) myocardial infarction; I50.33 Acute on chronic diastolic (congestive) heart failure; N18.4 Chronic kidney disease, stage 4 (severe); N25.81 Secondary hyperparathyroidism of renal origin; E11.22 Type 2 diabetes mellitus with diabetic chronic kidney disease; I16.0 Hypertensive urgency; Z66 Do not resuscitate; Z51.5 Encounter for palliative care; F41.9 Anxiety disorder, unspecified; F32.9 Major depressive disorder, single episode, unspecified; E78.5 Hyperlipidemia, unspecified; E66.9 Obesity, unspecified; Z68.35 Body mass index [BMI] 35.0-35.9, adult; Z87.891 Personal history of nicotine dependence; Z79.82 Long term (current) use of aspirin; Z79.4 Long term (current) use of insulin; Z79.899 Other long term (current) drug therapy
CPT/HCPCS: 36415; 71045; 78452; 80048; 80053; 80061; 80069; 81003; 81015; 82550; 82553; 82570; 83735; 83880; 84156; 84443; 84484; 85007; 85025; 85027; 93005; 93017; 93306; 93798; 94760; 96374; A9500; J0360; J1644; J1940; J2785; J3490

== ENCOUNTER 2021-05-29 21:59 | Inpatient (IN) | payer OTHER ==
[2021-05-29 22:59] LABS: Bilirubin Negative (Negative); Blood, Urine 1+ (Negative); Clarity Clear (Clear); Glucose, Urine (Dipstick) 50 mg/dL (Negative); Ketone, Urine Negative (Negative); Leukocyte Negative Leu/uL (Negative); Nitrite Negative (Negative); Protein, Urine (Dipstick) 200 mg/dL (Neg-Trace); Specific Gravity, Urine 1.015 (1.002-1.036); Sperm/HPF Rare HPF (None Seen); Squamous Epithelial None Seen HPF (0-3); Urobilinogen Normal mg/dL (Less than 2); pH, Urine 6.5 (5.0-9.0)
[2021-05-29 23:00] LABS: Bacteria/HPF Rare-Few HPF (None Seen)
[2021-05-29 23:36] LABS: Hemoglobin 11.9 g/dL (14.0-18.0); Mean Corpuscular HGB CONC 31.2 g/dL (32.0-36.0); Mean Corpuscular Hemoglobin 29.7 pg (27.0-31.0); Mean Corpuscular Volume 95.5 fL (78.0-98.0); Mean Platelet Volume 8.1 fL (7.4-10.4); Platelet Count 452 thou/uL (130-400); RBC Distribution Width 13.8 % (11.5-14.5)
[2021-05-29 23:56] LABS: ALT (SGPT) 30 U/L (8-55); AST (SGOT) 28 U/L (5-34); Alkaline Phosphatase 263 U/L (40-110); Anion Gap 22 mmol/L (10-20); BUN (Urea Nitrogen) 101 mg/dL (8.4-25.7); Bilirubin, Total 0.6 mg/dL (0.2-1.2); Calc. Creatinine Clearance 0 mL/min (70-130); Calcium 9.4 mg/dL (7.8-10.44); Carbon Dioxide 18 mmol/L (23-31); Chloride 98 mmol/L (98-107); Globulin 3.8 g/dL (2.4-3.5); Glucose 90 mg/dL (83-110); Potassium 5.5 mmol/L (3.5-5.1); Protein, Total 6.8 g/dL (5.8-8.1); Sodium 132 mmol/L (136-145)
[2021-05-29 23:57] LABS: Band 8 % (5-11); Lymphocytes 5 % (21-51); MDiff Complete? YES; Monocytes 7 % (0-10); Neutrophil 80 % (42-75); Platelet Morphology Comment Appears Increased; RBC Morphology Normal; White Blood Cell (WBC) Count 30.8 thou/uL (4.8-10.8)
[2021-05-30 04:22] LABS: HBSAg Index 0.14 S/CO (0-0.99); Hep B Surf Ag Non-Reactive S/CO (NonReactive)
[2021-05-30] MEDS ORDERED: Heparin 10,000 UNITS/ 10 ML VIAL ONE ×2 (11:50→11:51)
[2021-05-30] MEDS ORDERED: Lorazepam 2 MG/ML VIAL ONE (12:43)
[2021-05-30] MEDS ORDERED: Sterile Water 10 ML VIAL IVP SCH ×2 (15:45→20:30)
[2021-05-30] MEDS ORDERED: Activase 2 MG VIAL CATH SCH ×2 (15:45→20:30)
[2021-05-30] MEDS ORDERED: CEFAZOLIN 2 GM in Premix Bag 1 BAG IVPB SCH (17:45)
[2021-05-30 18:54] LABS: INR-International Normal Ratio 1.3; Prothrombin Time 16.5 sec (12.0-14.7)
[2021-05-30 18:55] LABS: PTT 36.4 sec (22.9-36.1)
[2021-05-30 19:03] LABS: Anion Gap 23 mmol/L (10-20); BUN (Urea Nitrogen) 115 mg/dL (8.4-25.7); Calc. Creatinine Clearance 0 mL/min (70-130); Calcium 8.9 mg/dL (7.8-10.44); Carbon Dioxide 17 mmol/L (23-31); Chloride 100 mmol/L (98-107); Glucose 102 mg/dL (83-110); Potassium 5.6 mmol/L (3.5-5.1); Sodium 134 mmol/L (136-145)
[2021-05-30 20:26] LABS: SARS-CoV-2 NAA Rapid Test Not Detected (NotDetected)
[2021-05-30] MEDS ORDERED: Ondansetron ODT 4 MG TAB SL PRN (20:30)
[2021-05-30] MEDS ORDERED: Acetaminophen 325 MG TAB PO PRN (20:30)
[2021-05-30] MEDS ORDERED: Ondansetron PF 4 MG/2 ML Vial IVP PRN (20:30)
[2021-05-31 01:58] LABS: Hemoglobin 11.4 g/dL (14.0-18.0); Mean Corpuscular HGB CONC 32.8 g/dL (32.0-36.0); Mean Corpuscular Hemoglobin 30.9 pg (27.0-31.0); Mean Corpuscular Volume 94.1 fL (78.0-98.0); Mean Platelet Volume 8.1 fL (7.4-10.4); Platelet Count 409 thou/uL (130-400); RBC Distribution Width 13.6 % (11.5-14.5); White Blood Cell (WBC) Count 33.1 thou/uL (4.8-10.8)
[2021-05-31] MEDS ORDERED: Vancomycin 1 GM in Premix Bag 1 BAG IVPB SCH ×2 (02:00→11:45)
[2021-05-31 02:25] LABS: Lymphocytes 1 % (21-51); MDiff Complete? YES; Monocytes 3 % (0-10); Neutrophil 96 % (42-75)
[2021-05-31 02:33] LABS: CKMB 1.6 ng/mL (0-6.6)
[2021-05-31] MEDS: Cefepime 1 GM in Sodium Chloride 0.9% 100 ML IVPB SCH (02:38)
[2021-05-31] MEDS: Aspirin 81 mg Enteric Coated Tablet PO SCH (08:21)
[2021-05-31] MEDS ORDERED: Lidocaine 1% w/Epinephrine 1:100K 30 ML VIAL ONE (08:53)
[2021-05-31] MEDS ORDERED: Sodium Chloride 0.9% 20 ML ONE (08:53)
[2021-05-31] MEDS ORDERED: Heparin 5,000 UNITS/ML VIAL ONE (08:53)
[2021-05-31] MEDS ORDERED: Bupivacaine PF 0.5% 30 ML VIAL ONE (08:53)
[2021-05-31] MEDS ORDERED: Protamine Sulfate 50 MG/5 ML VIAL ONE (08:53)
[2021-05-31] MEDS ORDERED: Heparin 10,000 UNITS/ 10 ML VIAL ONE ×2 (08:53→10:25)
[2021-05-31] MEDS: Metoprolol Tartrate 25 MG TAB PO SCH ×2 (08:59→21:29)
[2021-05-31] MEDS: Amlodipine 10 MG TAB PO SCH (09:00)
[2021-05-31] MEDS ORDERED: Non-Formulary Item 1 EACH (Lamotrigine [Lamictal] 200 MG Tablet) PO SCH (09:00)
[2021-05-31] MEDS: Losartan 25 MG TAB PO SCH (09:00)
[2021-05-31] MEDS ORDERED: Acetaminophen 325 MG TAB ONE (09:20)
[2021-05-31] MEDS ORDERED: Vancomycin 1 GM/200 ML BAG ONE (09:38)
[2021-05-31] MEDS ORDERED: Ketamine 50 MG/ML (10ML VIAL) ONE (09:48)
[2021-05-31] MEDS ORDERED: Midazolam HCl 2 mg/2 ml Vial ONE (09:48)
[2021-05-31] MEDS: Sevelamer Carbonate 800 MG TAB PO SCH ×3 (10:11→21:29)
[2021-05-31] MEDS ORDERED: Vancomycin HCl 500 MG in Sodium Chloride 0.9% 100 ML IVPB SCH (11:45)
[2021-05-31] MEDS ORDERED: Vancomycin HCl 750 MG in Sodium Chloride 0.9% 250 ML 250 ML IVPB SCH (11:45)
[2021-05-31] MEDS ORDERED: HOLD VANCOMYCIN FOR LEVEL >20 FS SCH (11:45)
[2021-05-31] MEDS ORDERED: Vancomycin HCl 1.25 GM in Sodium Chloride 0.9% 250 ML 250 ML IVPB SCH (11:45)
[2021-05-31] MEDS: lamoTRIgine 100 MG TAB PO SCH (16:27)
[2021-05-31] MEDS: Atorvastatin Calcium 40 MG TAB PO SCH (16:27)
[2021-05-31] MEDS: Calcitriol 0.25 MCG CAP PO SCH (16:27)
[2021-05-31] MEDS: Cinacalcet HCl 30 MG TAB PO SCH (16:28)
[2021-05-31 17:11] LABS: ALT (SGPT) 20 U/L (8-55); AST (SGOT) 21 U/L (5-34); Albumin 2.5 g/dL (3.4-4.8); Alkaline Phosphatase 218 U/L (40-110); Anion Gap 19 mmol/L (10-20); BUN (Urea Nitrogen) 70 mg/dL (8.4-25.7); Bilirubin, Total 0.5 mg/dL (0.2-1.2); Calc. Creatinine Clearance 17 mL/min (70-130); Calcium 9.2 mg/dL (7.8-10.44); Carbon Dioxide 23 mmol/L (23-31); Chloride 102 mmol/L (98-107); Globulin 2.7 g/dL (2.4-3.5); Glucose 90 mg/dL (83-110); Potassium 4.6 mmol/L (3.5-5.1); Protein, Total 5.2 g/dL (5.8-8.1); Sodium 139 mmol/L (136-145)
[2021-05-31 17:17] LABS: Band 5 % (5-11); Hemoglobin 10.9 g/dL (14.0-18.0); Lymphocytes 1 % (21-51); MDiff Complete? YES; Mean Corpuscular HGB CONC 31.6 g/dL (32.0-36.0); Mean Corpuscular Hemoglobin 29.7 pg (27.0-31.0); Mean Platelet Volume 8.4 fL (7.4-10.4); Monocytes 5 % (0-10); Neutrophil 89 % (42-75); Platelet Count 365 thou/uL (130-400); Platelet Morphology Comment Appears Adequate; Polychromasia SLIGHT = 2-3 cells (100X) (0-2/hpf); RBC Distribution Width 13.5 % (11.5-14.5); Red Blood Cell (RBC) Count 3.67 mill/uL (4.70-6.10); White Blood Cell (WBC) Count 33.6 thou/uL (4.8-10.8)
[2021-05-31] MEDS ORDERED: VANCOMYCIN 1.25 GM/250 ML BAG 1.25 GM in Premix Bag 1 BAG IVPB SCH (21:00)
[2021-05-31] MEDS: Citalopram 20 MG TAB PO SCH (21:29)
[2021-06-01] MEDS: Cefepime 1 GM in Sodium Chloride 0.9% 100 ML IVPB SCH (01:53)
[2021-06-01 04:55] LABS: Anion Gap 19 mmol/L (10-20); BUN (Urea Nitrogen) 90 mg/dL (8.4-25.7); Calc. Creatinine Clearance 14 mL/min (70-130); Calcium 9.3 mg/dL (7.8-10.44); Carbon Dioxide 22 mmol/L (23-31); Chloride 103 mmol/L (98-107); Glucose 103 mg/dL (83-110); Potassium 4.9 mmol/L (3.5-5.1); Sodium 139 mmol/L (136-145)
[2021-06-01 08:10] LABS: Hemoglobin 10.4 g/dL (14.0-18.0); Mean Corpuscular HGB CONC 31.5 g/dL (32.0-36.0); Mean Corpuscular Hemoglobin 30.1 pg (27.0-31.0); Mean Corpuscular Volume 95.7 fL (78.0-98.0); Mean Platelet Volume 8.4 fL (7.4-10.4); Platelet Count 363 thou/uL (130-400); RBC Distribution Width 13.4 % (11.5-14.5); Red Blood Cell (RBC) Count 3.47 mill/uL (4.70-6.10); White Blood Cell (WBC) Count 23.7 thou/uL (4.8-10.8)
[2021-06-01 08:28] LABS: Vancomycin, Random 19.8 ug/mL (See Comment)
[2021-06-01 08:36] LABS: Band 19 % (5-11); Lymphocytes 5 % (21-51); MDiff Complete? YES; Metamyelocyte 1 % (0-0); Monocytes 2 % (0-10); Neutrophil 73 % (42-75)
[2021-06-01] MEDS ORDERED: Heparin 10,000 UNITS/ 10 ML VIAL ONE (10:28)
[2021-06-01] MEDS ORDERED: Albumin 25% 25 GM/100 ML BOT IVPB PRN (11:26)
[2021-06-01] MEDS: Amlodipine 10 MG TAB PO SCH (13:57)
[2021-06-01] MEDS: Losartan 25 MG TAB PO SCH (13:57)
[2021-06-01] MEDS: Aspirin 81 mg Enteric Coated Tablet PO SCH (13:58)
[2021-06-01] MEDS: Atorvastatin Calcium 40 MG TAB PO SCH (13:58)
[2021-06-01] MEDS: Cinacalcet HCl 30 MG TAB PO SCH (13:59)
[2021-06-01] MEDS: Sevelamer Carbonate 800 MG TAB PO SCH ×3 (13:59→20:38)
[2021-06-01] MEDS: Calcitriol 0.25 MCG CAP PO SCH (13:59)
[2021-06-01] MEDS: lamoTRIgine 100 MG TAB PO SCH (13:59)
[2021-06-01] MEDS: Metoprolol Tartrate 25 MG TAB PO SCH ×2 (13:59→20:38)
[2021-06-01] MEDS: Terazosin HCl 5 MG CAP PO SCH (20:37)
[2021-06-01] MEDS: Citalopram 20 MG TAB PO SCH (20:38)
[2021-06-02] MEDS: Cefepime 1 GM in Sodium Chloride 0.9% 100 ML IVPB SCH (02:12)
[2021-06-02] MEDS: Citalopram 20 MG TAB PO SCH (22:33)
[2021-06-02] MEDS: Sevelamer Carbonate 800 MG TAB PO SCH (22:42)
[2021-06-02] MEDS: Metoprolol Tartrate 25 MG TAB PO SCH (22:50)
[2021-06-02] MEDS: Terazosin HCl 5 MG CAP PO SCH (23:20)
[2021-06-02] MEDS: traMADol HCl 50 MG TAB PO PRN (23:24)
[2021-06-03] MEDS: Acetaminophen 325 MG TAB ONE ×2 (00:12→11:13)
[2021-06-03] MEDS: Cefepime 1 GM in Sodium Chloride 0.9% 100 ML IVPB SCH ×2 (02:25→11:13)
[2021-06-03] MEDS: Amlodipine 10 MG TAB PO SCH ×2 (11:11→13:31)
[2021-06-03] MEDS: Aspirin 81 mg Enteric Coated Tablet PO SCH ×2 (11:11→13:29)
[2021-06-03] MEDS: Cinacalcet HCl 30 MG TAB PO SCH ×2 (11:11→13:30)
[2021-06-03] MEDS: Calcitriol 0.25 MCG CAP PO SCH ×2 (11:11→13:30)
[2021-06-03] MEDS: Atorvastatin Calcium 40 MG TAB PO SCH ×2 (11:11→13:29)
[2021-06-03] MEDS: lamoTRIgine 100 MG TAB PO SCH ×2 (11:12→13:31)
[2021-06-03] MEDS: Losartan 25 MG TAB PO SCH ×2 (11:12→13:29)
[2021-06-03] MEDS: Sevelamer Carbonate 800 MG TAB PO SCH ×5 (11:12→21:28)
[2021-06-03] MEDS: Metoprolol Tartrate 25 MG TAB PO SCH ×3 (11:12→21:30)
[2021-06-03] MEDS ORDERED: Heparin 10,000 UNITS/ 10 ML VIAL ONE (14:47)
[2021-06-03 15:58] LABS: Anion Gap 13 mmol/L (10-20); BUN (Urea Nitrogen) 45 mg/dL (8.4-25.7); Calc. Creatinine Clearance 21 mL/min (70-130); Carbon Dioxide 30 mmol/L (23-31); Chloride 99 mmol/L (98-107); Glucose 92 mg/dL (83-110); Sodium 138 mmol/L (136-145)
[2021-06-03] MEDS: Acetaminophen 325 MG TAB PO PRN (21:29)
[2021-06-03] MEDS: Citalopram 20 MG TAB PO SCH (21:29)
[2021-06-03] MEDS: Terazosin HCl 5 MG CAP PO SCH (21:30)
[2021-06-04 08:38] LABS: #Eosinphils 0.6 thou/uL (0.0-0.7); #Lymphocytes 0.8 thou/uL (1.20-3.40); #Monocytes 0.9 thou/uL (0.11-0.59); #Neutrophils 15.2 thou/uL (1.40-6.50); %Basophils 0.1 % (0.0-1.0); %Eosinophils 3.6 % (0.0-10.0); %Lymphocytes 4.5 % (21.0-51.0); %Neutrophils 86.8 % (42.0-75.0); Hemoglobin 9.5 g/dL (14.0-18.0); Mean Corpuscular HGB CONC 31.2 g/dL (32.0-36.0); Mean Corpuscular Hemoglobin 29.9 pg (27.0-31.0); Mean Platelet Volume 8.8 fL (7.4-10.4); Platelet Count 328 thou/uL (130-400); RBC Distribution Width 13.4 % (11.5-14.5); Red Blood Cell (RBC) Count 3.17 mill/uL (4.70-6.10); White Blood Cell (WBC) Count 17.5 thou/uL (4.8-10.8)
[2021-06-04] MEDS: Aspirin 81 mg Enteric Coated Tablet PO SCH (08:40)
[2021-06-04] MEDS: Atorvastatin Calcium 40 MG TAB PO SCH (08:40)
[2021-06-04] MEDS: Sevelamer Carbonate 800 MG TAB PO SCH ×3 (08:40→21:05)
[2021-06-04] MEDS: Losartan 25 MG TAB PO SCH (08:40)
[2021-06-04] MEDS: lamoTRIgine 100 MG TAB PO SCH (08:40)
[2021-06-04] MEDS: Cinacalcet HCl 30 MG TAB PO SCH (08:40)
[2021-06-04] MEDS: Metoprolol Tartrate 25 MG TAB PO SCH ×2 (08:41→21:05)
[2021-06-04] MEDS: Amlodipine 10 MG TAB PO SCH (08:41)
[2021-06-04] MEDS: Calcitriol 0.25 MCG CAP PO SCH (08:41)
[2021-06-04] MEDS: ceFAZolin 1 GM/D5W 1 GM in Premix Bag 1 BAG IVPB SCH (08:42)
[2021-06-04 08:55] LABS: Anion Gap 17 mmol/L (10-20); BUN (Urea Nitrogen) 58 mg/dL (8.4-25.7); Calc. Creatinine Clearance 17 mL/min (70-130); Calcium 8.5 mg/dL (7.8-10.44); Carbon Dioxide 24 mmol/L (23-31); Chloride 99 mmol/L (98-107); Glucose 83 mg/dL (83-110); Potassium 4.6 mmol/L (3.5-5.1); Sodium 135 mmol/L (136-145)
[2021-06-04] MEDS ORDERED: Artificial Tear Sol 15 ML BOT EA EYE PRN (08:58)
[2021-06-04] MEDS ORDERED: Carvedilol 3.125 MG TAB PO SCH (09:00)
[2021-06-04] MEDS ORDERED: Lorazepam 2 MG/ML VIAL SLOW IVP PRN (10:30)
[2021-06-04] MEDS: Venlafaxine HCl XR 75 MG CAP PO SCH (10:43)
[2021-06-04] MEDS: traMADol HCl 50 MG TAB PO PRN (10:44)
[2021-06-04] MEDS: Acetaminophen 325 MG TAB PO PRN (21:04)
[2021-06-04] MEDS: Terazosin HCl 5 MG CAP PO SCH (21:05)
[2021-06-04] MEDS: Citalopram 20 MG TAB PO SCH (21:05)
[2021-06-05] MEDS ORDERED: Acetaminophen 325 MG TAB PO PRN (01:25)
[2021-06-05 05:31] LABS: Hypochromia SLIGHT = 6-15 cells (100X) (0-5/hpf); Lymphocytes 12 % (21-51); MDiff Complete? YES; Mean Corpuscular Hemoglobin 30.7 pg (27.0-31.0); Mean Corpuscular Volume 95.8 fL (78.0-98.0); Mean Platelet Volume 9.4 fL (7.4-10.4); Monocytes 10 % (0-10); Neutrophil 78 % (42-75); Platelet Count 305 thou/uL (130-400); Platelet Morphology Comment Appears Adequate; RBC Distribution Width 13.4 % (11.5-14.5); Red Blood Cell (RBC) Count 2.94 mill/uL (4.70-6.10); White Blood Cell (WBC) Count 15.9 thou/uL (4.8-10.8)
[2021-06-05 05:33] LABS: Anion Gap 16 mmol/L (10-20); BUN (Urea Nitrogen) 68 mg/dL (8.4-25.7); CRP (Inflammatory) 7.68 mg/dL (= or < 0.5); Calc. Creatinine Clearance 15 mL/min (70-130); Calcium 8.3 mg/dL (7.8-10.44); Carbon Dioxide 23 mmol/L (23-31); Chloride 97 mmol/L (98-107); Glucose 74 mg/dL (83-110); Potassium 4.8 mmol/L (3.5-5.1); Sodium 131 mmol/L (136-145)
[2021-06-05] MEDS: Sevelamer Carbonate 800 MG TAB PO SCH ×3 (09:08→21:26)
[2021-06-05] MEDS: Metoprolol Tartrate 25 MG TAB PO SCH ×2 (09:09→21:27)
[2021-06-05] MEDS: Venlafaxine HCl XR 75 MG CAP PO SCH (09:09)
[2021-06-05] MEDS: Aspirin 81 mg Enteric Coated Tablet PO SCH (09:09)
[2021-06-05] MEDS: Losartan 25 MG TAB PO SCH (09:09)
[2021-06-05] MEDS: Cinacalcet HCl 30 MG TAB PO SCH (09:10)
[2021-06-05] MEDS: Calcitriol 0.25 MCG CAP PO SCH (09:10)
[2021-06-05] MEDS: Atorvastatin Calcium 40 MG TAB PO SCH (09:10)
[2021-06-05] MEDS: Amlodipine 10 MG TAB PO SCH (09:10)
[2021-06-05] MEDS: lamoTRIgine 100 MG TAB PO SCH (09:10)
[2021-06-05] MEDS: ceFAZolin 1 GM/D5W 1 GM in Premix Bag 1 BAG IVPB SCH (09:10)
[2021-06-06] MEDS: traMADol HCl 50 MG TAB PO PRN (01:11)
[2021-06-06] MEDS ORDERED: Heparin 10,000 UNITS/ 10 ML VIAL ONE ×2 (08:56→10:29)
[2021-06-06] MEDS ORDERED: lamoTRIgine 100 MG TAB PO SCH (09:00)
[2021-06-06] MEDS ORDERED: Activase 2 MG VIAL CATH SCH (10:15)
[2021-06-06] MEDS: Metoprolol Tartrate 25 MG TAB PO SCH ×2 (15:29→20:34)
[2021-06-06] MEDS: Sevelamer Carbonate 800 MG TAB PO SCH ×3 (15:29→20:27)
[2021-06-06] MEDS: Calcitriol 0.25 MCG CAP PO SCH (15:40)
[2021-06-06] MEDS: Atorvastatin Calcium 40 MG TAB PO SCH (15:40)
[2021-06-06] MEDS: Amlodipine 10 MG TAB PO SCH (15:40)
[2021-06-06] MEDS: Aspirin 81 mg Enteric Coated Tablet PO SCH (15:40)
[2021-06-06] MEDS: Cinacalcet HCl 30 MG TAB PO SCH (15:40)
[2021-06-06] MEDS: Losartan 25 MG TAB PO SCH (15:40)
[2021-06-06] MEDS: ceFAZolin 1 GM/D5W 1 GM in Premix Bag 1 BAG IVPB SCH ×2 (15:40→18:28)
[2021-06-06] MEDS: Venlafaxine HCl XR 75 MG CAP PO SCH (15:41)
[2021-06-07] MEDS ORDERED: Heparin 10,000 UNITS/ 10 ML VIAL ONE (09:00)
[2021-06-07] MEDS: Venlafaxine HCl XR 75 MG CAP PO SCH (09:27)
[2021-06-07] MEDS: Losartan 25 MG TAB PO SCH (09:27)
[2021-06-07] MEDS: Sevelamer Carbonate 800 MG TAB PO SCH ×3 (09:27→21:08)
[2021-06-07] MEDS: Cinacalcet HCl 30 MG TAB PO SCH (09:28)
[2021-06-07] MEDS: Calcitriol 0.25 MCG CAP PO SCH (09:28)
[2021-06-07] MEDS: Aspirin 81 mg Enteric Coated Tablet PO SCH (09:28)
[2021-06-07] MEDS: Amlodipine 10 MG TAB PO SCH (09:28)
[2021-06-07] MEDS: Atorvastatin Calcium 40 MG TAB PO SCH (09:28)
[2021-06-07] MEDS: Metoprolol Tartrate 25 MG TAB PO SCH ×2 (09:30→21:07)
[2021-06-07] MEDS ORDERED: Iopamidol-370 76% 500 ML 1 ML ONE ×2 (10:21→11:54)
[2021-06-07] MEDS: ceFAZolin 1 GM/D5W 1 GM in Premix Bag 1 BAG IVPB SCH (11:19)
[2021-06-07 12:38] LABS: SARS-CoV-2 PCR by NAA Not Detected (NotDetected)
[2021-06-07] MEDS ORDERED: CEFAZOLIN 3 GM in Sodium Chloride 0.9% 100 ML IVPB SCH (15:45)
[2021-06-07] MEDS: traMADol HCl 50 MG TAB PO PRN (23:47)
[2021-06-08] MEDS: Morphine 2 MG/ML VIAL SLOW IVP PRN (05:01)
[2021-06-08] MEDS: Losartan 25 MG TAB PO SCH (12:50)
[2021-06-08] MEDS: Aspirin 81 mg Enteric Coated Tablet PO SCH (12:50)
[2021-06-08] MEDS: Atorvastatin Calcium 40 MG TAB PO SCH (12:50)
[2021-06-08] MEDS: Sevelamer Carbonate 800 MG TAB PO SCH ×3 (12:51→20:39)
[2021-06-08] MEDS: Calcitriol 0.25 MCG CAP PO SCH (12:51)
[2021-06-08] MEDS: Metoprolol Tartrate 25 MG TAB PO SCH ×2 (12:51→20:39)
[2021-06-08] MEDS: Venlafaxine HCl XR 75 MG CAP PO SCH (12:51)
[2021-06-08] MEDS: Cinacalcet HCl 30 MG TAB PO SCH (12:52)
[2021-06-08] MEDS: Amlodipine 10 MG TAB PO SCH (12:52)
[2021-06-09 07:04] LABS: Hemoglobin 11.1 g/dL (14.0-18.0)
[2021-06-09] MEDS: Amlodipine 10 MG TAB PO SCH (09:50)
[2021-06-09] MEDS: Losartan 25 MG TAB PO SCH (09:50)
[2021-06-09] MEDS: Cinacalcet HCl 30 MG TAB PO SCH (09:50)
[2021-06-09] MEDS: Sevelamer Carbonate 800 MG TAB PO SCH ×3 (09:50→21:34)
[2021-06-09] MEDS: Metoprolol Tartrate 25 MG TAB PO SCH ×2 (09:50→21:34)
[2021-06-09] MEDS: Venlafaxine HCl XR 75 MG CAP PO SCH (09:50)
[2021-06-09] MEDS: Aspirin 81 mg Enteric Coated Tablet PO SCH (09:50)
[2021-06-09] MEDS: Calcitriol 0.25 MCG CAP PO SCH (09:50)
[2021-06-09] MEDS: Atorvastatin Calcium 40 MG TAB PO SCH (09:50)
[2021-06-09 12:27] LABS: Anion Gap 14 mmol/L (10-20); BUN (Urea Nitrogen) 21 mg/dL (8.4-25.7); Calc. Creatinine Clearance 24 mL/min (70-130); Calcium 8.7 mg/dL (7.8-10.44); Carbon Dioxide 28 mmol/L (23-31); Chloride 102 mmol/L (98-107); Glucose 109 mg/dL (83-110); Potassium 3.6 mmol/L (3.5-5.1); Sodium 140 mmol/L (136-145)
[2021-06-09 12:28] LABS: #Basophils 0.1 thou/uL (0.0-0.2); #Eosinphils 0.3 thou/uL (0.0-0.7); #Lymphocytes 0.8 thou/uL (1.20-3.40); #Monocytes 1.1 thou/uL (0.11-0.59); #Neutrophils 11.2 thou/uL (1.40-6.50); %Basophils 0.6 % (0.0-1.0); %Eosinophils 1.9 % (0.0-10.0); %Lymphocytes 5.7 % (21.0-51.0); %Monocytes 8.4 % (0.0-10.0); %Neutrophils 83.5 % (42.0-75.0); Hemoglobin 10.5 g/dL (14.0-18.0); Mean Corpuscular HGB CONC 30.3 g/dL (32.0-36.0); Mean Corpuscular Hemoglobin 29.7 pg (27.0-31.0); Mean Corpuscular Volume 98.2 fL (78.0-98.0); Mean Platelet Volume 8.2 fL (7.4-10.4); Platelet Count 498 thou/uL (130-400); RBC Distribution Width 13.5 % (11.5-14.5); Red Blood Cell (RBC) Count 3.55 mill/uL (4.70-6.10); White Blood Cell (WBC) Count 13.4 thou/uL (4.8-10.8)
[2021-06-10] MEDS: Losartan 25 MG TAB PO SCH (08:41)
[2021-06-10] MEDS: Amlodipine 10 MG TAB PO SCH (08:41)
[2021-06-10] MEDS: Metoprolol Tartrate 25 MG TAB PO SCH ×2 (08:41→20:37)
[2021-06-10] MEDS: Cinacalcet HCl 30 MG TAB PO SCH (08:53)
[2021-06-10] MEDS: Atorvastatin Calcium 40 MG TAB PO SCH (08:53)
[2021-06-10] MEDS: Calcitriol 0.25 MCG CAP PO SCH (08:53)
[2021-06-10] MEDS: Sevelamer Carbonate 800 MG TAB PO SCH ×3 (08:53→20:39)
[2021-06-10] MEDS: Aspirin 81 mg Enteric Coated Tablet PO SCH (08:53)
[2021-06-10] MEDS: Venlafaxine HCl XR 75 MG CAP PO SCH (08:54)
[2021-06-10] MEDS ORDERED: Heparin 10,000 UNITS/ 10 ML VIAL ONE (09:40)
[2021-06-10 11:34] LABS: #Basophils 0.1 thou/uL (0.0-0.2); #Eosinphils 0.2 thou/uL (0.0-0.7); #Lymphocytes 0.9 thou/uL (1.20-3.40); #Neutrophils 11.9 thou/uL (1.40-6.50); %Basophils 0.5 % (0.0-1.0); %Eosinophils 1.3 % (0.0-10.0); %Lymphocytes 6.3 % (21.0-51.0); %Monocytes 6.9 % (0.0-10.0); %Neutrophils 85.1 % (42.0-75.0); Hemoglobin 11.2 g/dL (14.0-18.0); Mean Corpuscular HGB CONC 30.7 g/dL (32.0-36.0); Mean Corpuscular Hemoglobin 30.1 pg (27.0-31.0); Mean Corpuscular Volume 98.1 fL (78.0-98.0); Mean Platelet Volume 7.7 fL (7.4-10.4); Platelet Count 499 thou/uL (130-400); RBC Distribution Width 13.5 % (11.5-14.5); Red Blood Cell (RBC) Count 3.73 mill/uL (4.70-6.10)
[2021-06-10] MEDS ORDERED: CEFAZOLIN 3 GM in Sodium Chloride 0.9% 100 ML IVPB SCH (14:00)
[2021-06-10] MEDS: Morphine 2 MG/ML VIAL SLOW IVP PRN (23:21)
[2021-06-11 05:19] LABS: Anion Gap 13 mmol/L (10-20); BUN (Urea Nitrogen) 21 mg/dL (8.4-25.7); Calc. Creatinine Clearance 22 mL/min (70-130); Carbon Dioxide 27 mmol/L (23-31); Chloride 102 mmol/L (98-107); Glucose 90 mg/dL (83-110); Potassium 3.8 mmol/L (3.5-5.1); Sodium 138 mmol/L (136-145)
[2021-06-11] MEDS: Amlodipine 10 MG TAB PO SCH (08:51)
[2021-06-11] MEDS: Sevelamer Carbonate 800 MG TAB PO SCH ×3 (08:52→20:23)
[2021-06-11] MEDS: Aspirin 81 mg Enteric Coated Tablet PO SCH (08:52)
[2021-06-11] MEDS: Cinacalcet HCl 30 MG TAB PO SCH (08:52)
[2021-06-11] MEDS: Calcitriol 0.25 MCG CAP PO SCH (08:52)
[2021-06-11] MEDS: Atorvastatin Calcium 40 MG TAB PO SCH (08:52)
[2021-06-11] MEDS: Venlafaxine HCl XR 75 MG CAP PO SCH (08:52)
[2021-06-11] MEDS: Losartan 25 MG TAB PO SCH (08:52)
[2021-06-11] MEDS: Metoprolol Tartrate 25 MG TAB PO SCH ×2 (08:52→20:23)
[2021-06-11 12:21] LABS: #Basophils 0.1 thou/uL (0.0-0.2); #Eosinphils 0.4 thou/uL (0.0-0.7); #Lymphocytes 0.9 thou/uL (1.20-3.40); #Neutrophils 11.2 thou/uL (1.40-6.50); %Basophils 0.9 % (0.0-1.0); %Eosinophils 2.6 % (0.0-10.0); %Lymphocytes 6.7 % (21.0-51.0); %Monocytes 7.7 % (0.0-10.0); %Neutrophils 82.1 % (42.0-75.0); Hemoglobin 11.2 g/dL (14.0-18.0); Mean Corpuscular HGB CONC 30.1 g/dL (32.0-36.0); Mean Corpuscular Hemoglobin 29.9 pg (27.0-31.0); Mean Corpuscular Volume 99.4 fL (78.0-98.0); Mean Platelet Volume 7.9 fL (7.4-10.4); Platelet Count 520 thou/uL (130-400); RBC Distribution Width 13.2 % (11.5-14.5); Red Blood Cell (RBC) Count 3.74 mill/uL (4.70-6.10); White Blood Cell (WBC) Count 13.6 thou/uL (4.8-10.8)
[2021-06-11 12:38] LABS: Anion Gap 13 mmol/L (10-20); BUN (Urea Nitrogen) 26 mg/dL (8.4-25.7); Calc. Creatinine Clearance 18 mL/min (70-130); Carbon Dioxide 30 mmol/L (23-31); Chloride 100 mmol/L (98-107); Glucose 94 mg/dL (83-110); Potassium 3.8 mmol/L (3.5-5.1); Sodium 139 mmol/L (136-145)
[2021-06-12 05:21] LABS: #Basophils 0.1 thou/uL (0.0-0.2); #Eosinphils 0.4 thou/uL (0.0-0.7); #Lymphocytes 1.1 thou/uL (1.20-3.40); #Neutrophils 10.8 thou/uL (1.40-6.50); %Basophils 0.4 % (0.0-1.0); %Lymphocytes 8.3 % (21.0-51.0); %Monocytes 7.7 % (0.0-10.0); %Neutrophils 80.7 % (42.0-75.0); Hemoglobin 10.4 g/dL (14.0-18.0); Mean Corpuscular HGB CONC 30.1 g/dL (32.0-36.0); Mean Corpuscular Hemoglobin 29.6 pg (27.0-31.0); Mean Corpuscular Volume 98.3 fL (78.0-98.0); Mean Platelet Volume 7.9 fL (7.4-10.4); Platelet Count 484 thou/uL (130-400); RBC Distribution Width 13.4 % (11.5-14.5); White Blood Cell (WBC) Count 13.4 thou/uL (4.8-10.8)
[2021-06-12 05:55] LABS: Anion Gap 14 mmol/L (10-20); BUN (Urea Nitrogen) 34 mg/dL (8.4-25.7); Calc. Creatinine Clearance 16 mL/min (70-130); Calcium 8.7 mg/dL (7.8-10.44); Carbon Dioxide 27 mmol/L (23-31); Chloride 98 mmol/L (98-107); Glucose 83 mg/dL (83-110); Potassium 3.8 mmol/L (3.5-5.1); Sodium 135 mmol/L (136-145)
[2021-06-12] MEDS: Atorvastatin Calcium 40 MG TAB PO SCH (08:38)
[2021-06-12] MEDS: Cinacalcet HCl 30 MG TAB PO SCH (08:38)
[2021-06-12] MEDS: Calcitriol 0.25 MCG CAP PO SCH (08:38)
[2021-06-12] MEDS: Venlafaxine HCl XR 75 MG CAP PO SCH (08:38)
[2021-06-12] MEDS: Metoprolol Tartrate 25 MG TAB PO SCH ×2 (08:38→21:01)
[2021-06-12] MEDS: Sevelamer Carbonate 800 MG TAB PO SCH ×3 (08:38→21:01)
[2021-06-12] MEDS: Aspirin 81 mg Enteric Coated Tablet PO SCH (08:38)
[2021-06-12] MEDS: Losartan 25 MG TAB PO SCH (08:38)
[2021-06-12] MEDS: Amlodipine 10 MG TAB PO SCH (08:38)
[2021-06-12 10:50] LABS: Anion Gap 14 mmol/L (10-20); BUN (Urea Nitrogen) 35 mg/dL (8.4-25.7); Calc. Creatinine Clearance 15 mL/min (70-130); Calcium 9.1 mg/dL (7.8-10.44); Carbon Dioxide 28 mmol/L (23-31); Chloride 98 mmol/L (98-107); Glucose 90 mg/dL (83-110); Potassium 4.1 mmol/L (3.5-5.1); Sodium 136 mmol/L (136-145)
[2021-06-12 11:07] LABS: Hemoglobin 10.9 g/dL (14.0-18.0); Mean Corpuscular HGB CONC 29.5 g/dL (32.0-36.0); Mean Corpuscular Hemoglobin 29.1 pg (27.0-31.0); Mean Corpuscular Volume 98.6 fL (78.0-98.0); Mean Platelet Volume 7.8 fL (7.4-10.4); Platelet Count 524 thou/uL (130-400); RBC Distribution Width 13.5 % (11.5-14.5); Red Blood Cell (RBC) Count 3.75 mill/uL (4.70-6.10); White Blood Cell (WBC) Count 13.9 thou/uL (4.8-10.8)
[2021-06-12 11:28] LABS: #Basophils 0.1 thou/uL (0.0-0.2); #Eosinphils 0.4 thou/uL (0.0-0.7); #Lymphocytes 1.2 thou/uL (1.20-3.40); #Monocytes 0.8 thou/uL (0.11-0.59); #Neutrophils 11.3 thou/uL (1.40-6.50); %Basophils 0.4 % (0.0-1.0); %Eosinophils 3.2 % (0.0-10.0); %Lymphocytes 8.6 % (21.0-51.0); %Monocytes 6.1 % (0.0-10.0); %Neutrophils 81.8 % (42.0-75.0); Band 1 % (5-11); Eosinophils 3 % (0-10); Hypersemented Neutrophil SLIGHT; Lymphocytes 5 % (21-51); MDiff Complete? YES; Monocytes 5 % (0-10); Neutrophil 84 % (42-75); Platelet Morphology Comment Appears Increased; Polychromasia SLIGHT = 2-3 cells (100X) (0-2/hpf)
[2021-06-13] MEDS ORDERED: ALPRAZolam 0.25 MG TAB PO SCH (09:45)
[2021-06-13] MEDS ORDERED: Digoxin 0.25 MG TAB PO SCH (09:45)
[2021-06-13 11:04] LABS: #Eosinphils 0.3 thou/uL (0.0-0.7); #Lymphocytes 0.8 thou/uL (1.20-3.40); #Monocytes 0.9 thou/uL (0.11-0.59); #Neutrophils 10.3 thou/uL (1.40-6.50); %Basophils 0.4 % (0.0-1.0); %Eosinophils 2.3 % (0.0-10.0); %Lymphocytes 6.2 % (21.0-51.0); %Monocytes 7.6 % (0.0-10.0); %Neutrophils 83.6 % (42.0-75.0); Hemoglobin 9.9 g/dL (14.0-18.0); Mean Corpuscular HGB CONC 31.3 g/dL (32.0-36.0); Mean Corpuscular Hemoglobin 29.9 pg (27.0-31.0); Mean Corpuscular Volume 95.5 fL (78.0-98.0); Mean Platelet Volume 7.5 fL (7.4-10.4); Platelet Count 458 thou/uL (130-400); RBC Distribution Width 13.3 % (11.5-14.5); Red Blood Cell (RBC) Count 3.31 mill/uL (4.70-6.10); White Blood Cell (WBC) Count 12.3 thou/uL (4.8-10.8)
[2021-06-13 11:33] LABS: Chloride 99 mmol/L (98-107); Sodium 137 mmol/L (136-145)
[2021-06-13 11:50] LABS: Calc. Creatinine Clearance 12 mL/min (70-130); Calcium 8.8 mg/dL (7.8-10.44); Carbon Dioxide 26 mmol/L (23-31)
[2021-06-13] MEDS ORDERED: Polyethylene Glycol 3350 17 GM Packet PO SCH (12:15)
[2021-06-13 12:24] LABS: BUN (Urea Nitrogen) 48 mg/dL (8.4-25.7); Glucose 88 mg/dL (83-110)
[2021-06-13 12:31] LABS: Anion Gap 16 mmol/L (10-20)
[2021-06-13] MEDS: Metoprolol Tartrate 25 MG TAB PO SCH ×2 (14:55→21:49)
[2021-06-13] MEDS: Lactinex Tablet PO SCH (14:55)
[2021-06-13] MEDS: Cinacalcet HCl 30 MG TAB PO SCH (14:55)
[2021-06-13] MEDS ORDERED: Heparin 10,000 UNITS/ 10 ML VIAL ONE (14:55)
[2021-06-13] MEDS: Sevelamer Carbonate 800 MG TAB PO SCH ×3 (14:56→21:49)
[2021-06-13] MEDS: Amlodipine 10 MG TAB PO SCH (14:56)
[2021-06-13] MEDS: Atorvastatin Calcium 40 MG TAB PO SCH (14:56)
[2021-06-13] MEDS: Aspirin 81 mg Enteric Coated Tablet PO SCH (14:56)
[2021-06-13] MEDS: Losartan 25 MG TAB PO SCH (14:56)
[2021-06-13] MEDS: Calcitriol 0.25 MCG CAP PO SCH (14:56)
[2021-06-13] MEDS: Venlafaxine HCl XR 75 MG CAP PO SCH (14:56)
[2021-06-13] MEDS: Senokot S 8.6-50 MG TAB PO SCH ×3 (15:02→21:49)
[2021-06-13] MEDS: Morphine 2 MG/ML VIAL SLOW IVP PRN (23:19)
[2021-06-13] MEDS ORDERED: Melatonin 3 MG TAB PO PRN (23:24)
[2021-06-13] MEDS ORDERED: ALPRAZolam 0.5 MG TAB PO SCH (23:30)
[2021-06-13] MEDS ORDERED: Lorazepam 2 MG/ML VIAL ONE (23:33)
[2021-06-13] MEDS ORDERED: Lorazepam 2 MG/ML VIAL SLOW IVP SCH (23:45)
[2021-06-14 06:58] LABS: #Basophils 0.1 thou/uL (0.0-0.2); #Eosinphils 0.2 thou/uL (0.0-0.7); #Lymphocytes 1.1 thou/uL (1.20-3.40); #Neutrophils 8.4 thou/uL (1.40-6.50); %Basophils 0.6 % (0.0-1.0); %Eosinophils 2.1 % (0.0-10.0); %Lymphocytes 9.9 % (21.0-51.0); %Neutrophils 78.5 % (42.0-75.0); Hemoglobin 10.8 g/dL (14.0-18.0); Mean Corpuscular HGB CONC 31.2 g/dL (32.0-36.0); Mean Corpuscular Hemoglobin 30.1 pg (27.0-31.0); Mean Corpuscular Volume 96.7 fL (78.0-98.0); Mean Platelet Volume 7.7 fL (7.4-10.4); Platelet Count 418 thou/uL (130-400); RBC Distribution Width 13.4 % (11.5-14.5); Red Blood Cell (RBC) Count 3.58 mill/uL (4.70-6.10); White Blood Cell (WBC) Count 10.7 thou/uL (4.8-10.8)
[2021-06-14 07:34] LABS: Anion Gap 14 mmol/L (10-20); BUN (Urea Nitrogen) 23 mg/dL (8.4-25.7); Calc. Creatinine Clearance 17 mL/min (70-130); Calcium 8.8 mg/dL (7.8-10.44); Carbon Dioxide 27 mmol/L (23-31); Chloride 103 mmol/L (98-107); Glucose 83 mg/dL (83-110); Potassium 3.9 mmol/L (3.5-5.1); Sodium 140 mmol/L (136-145)
[2021-06-14] MEDS ORDERED: Polyethylene Glycol 3350 17 GM Packet PO SCH (09:00)
[2021-06-14] MEDS: Sevelamer Carbonate 800 MG TAB PO SCH ×2 (09:05→15:30)
[2021-06-14] MEDS: Lactinex Tablet PO SCH (09:05)
[2021-06-14] MEDS: Venlafaxine HCl XR 75 MG CAP PO SCH (09:06)
[2021-06-14] MEDS: Calcitriol 0.25 MCG CAP PO SCH (09:06)
[2021-06-14] MEDS: Aspirin 81 mg Enteric Coated Tablet PO SCH (09:06)
[2021-06-14] MEDS: Atorvastatin Calcium 40 MG TAB PO SCH (09:06)
[2021-06-14] MEDS: Cinacalcet HCl 30 MG TAB PO SCH (09:06)
[2021-06-14] MEDS: Amlodipine 10 MG TAB PO SCH (10:29)
[2021-06-14] MEDS: Metoprolol Tartrate 25 MG TAB PO SCH (10:30)
[2021-06-14] MEDS: Losartan 25 MG TAB PO SCH (10:30)
[2021-06-14 12:07] VITALS: BMI 24.5
[2021-06-14] MEDS: Senokot S 8.6-50 MG TAB PO SCH (15:30)
[2021-06-14 15:35] VITALS: BP 109/69; TEMP 97.7
== END 2021-06-14 19:06 | DRG 314 ==
LOC: ERS 21:59 → EEVIPCON 21:59 → 2NO 05-30 18:06 → OBSVTOIN 05-31 11:36 → SURG B 06-12 16:23 → 2NO 06-12 16:43 → SURG B 06-12 18:21
PROVIDERS: ADMIT Internal Medicine; ATTEND Internal Medicine
PROC: 5A1D70Z Performance of Urinary Filtration, Intermittent, Less than 6 Hours Per Day (ICD-10-PCS; 2021-05-30)
PROC: 02HV33Z Insertion of Infusion Device into Superior Vena Cava, Percutaneous Approach (ICD-10-PCS; principal; 2021-05-31)
PROC: 0JPT0XZ Removal of Tunneled Vascular Access Device from Trunk Subcutaneous Tissue and Fascia, Open Approach (ICD-10-PCS; 2021-05-31)
PROC: 02PY33Z Removal of Infusion Device from Great Vessel, Percutaneous Approach (ICD-10-PCS; 2021-05-31)
PROC: B548ZZA Ultrasonography of Superior Vena Cava, Guidance (ICD-10-PCS; 2021-05-31)
PROC: B5181ZA Fluoroscopy of Superior Vena Cava using Low Osmolar Contrast, Guidance (ICD-10-PCS; 2021-05-31)
DX: T80.211A Bloodstream infection due to central venous catheter, initial encounter (principal); A41.01 Sepsis due to Methicillin susceptible Staphylococcus aureus; N18.6 End stage renal disease; K68.12 Psoas muscle abscess; T82.49XA Other complication of vascular dialysis catheter, initial encounter; M46.26 Osteomyelitis of vertebra, lumbar region; F05 Delirium due to known physiological condition; E87.1 Hypo-osmolality and hyponatremia; E87.2 Acidosis; M46.28 Osteomyelitis of vertebra, sacral and sacrococcygeal region; I48.20 Chronic atrial fibrillation, unspecified; N25.81 Secondary hyperparathyroidism of renal origin; I12.0 Hypertensive chronic kidney disease with stage 5 chronic kidney disease or end stage renal disease; N17.9 Acute kidney failure, unspecified; G93.49 Other encephalopathy; Z20.822 Contact with and (suspected) exposure to COVID-19; M46.46 Discitis, unspecified, lumbar region; F03.90 Unspecified dementia, unspecified severity, without behavioral disturbance, psychotic disturbance, mood disturbance, and anxiety; E78.5 Hyperlipidemia, unspecified; F31.9 Bipolar disorder, unspecified; E87.5 Hyperkalemia; E88.09 Other disorders of plasma-protein metabolism, not elsewhere classified; D63.1 Anemia in chronic kidney disease; I48.91 Unspecified atrial fibrillation; I25.10 Atherosclerotic heart disease of native coronary artery without angina pectoris; M10.9 Gout, unspecified; K21.9 Gastro-esophageal reflux disease without esophagitis; N40.0 Benign prostatic hyperplasia without lower urinary tract symptoms; Z53.20 Procedure and treatment not carried out because of patient's decision for unspecified reasons; E66.9 Obesity, unspecified; M46.47 Discitis, unspecified, lumbosacral region; I08.3 Combined rheumatic disorders of mitral, aortic and tricuspid valves; Y84.8 Other medical procedures as the cause of abnormal reaction of the patient, or of later complication, without mention of misadventure at the time of the procedure; Z99.2 Dependence on renal dialysis; Z28.21 Immunization not carried out because of patient refusal; Z87.891 Personal history of nicotine dependence; Z82.49 Family history of ischemic heart disease and other diseases of the circulatory system; Z79.82 Long term (current) use of aspirin; Z79.899 Other long term (current) drug therapy; Z68.24 Body mass index [BMI] 24.0-24.9, adult
CPT/HCPCS: 36415; 71045; 71275; 72132; 72193; 80048; 80053; 80202; 81003; 81015; 82553; 84484; 85014; 85018; 85025; 85610; 85730; 86140; 86850; 86900; 86901; 87040; 87340; 90935; 93005; 93306; 93970; 96374; 96375; C1752; G0257; G0378; J0690; J0692; J1644; J2060; J2250; J2270; J2720; J2997; J3370; J3490; P9047; Q9967; S0020; U0002; U0003; U0005